=== PATIENT | female | born 1980 | race African-American/Black ===

== ENCOUNTER 2016-12-07 23:14 | Observation (INO) | payer OTHER ==
[~2016-12-07] VITALS: Ht 157.5 cm; Wt 105.0 kg
[~2016-12-07 23:14] MED LIST: ALBU.5I NEB; AMLO5 PO; CLON0.2T PO; HYDR25TA5 PO; LISI40TA PO; PRED20 PO; SYMB160A INH; ZITHTAB PO
[2016-12-07 23:18] VITALS: BP 124/96; PULSE 88; RESP 16; TEMP 98.1; O2SAT 100
[2016-12-08] VITALS (7 sets, daily range): BP systolic 131–156; BP diastolic 74–91; PULSE 76–91; RESP 14–20; TEMP 97.5–98.4; O2SAT 100
[2016-12-08 00:10] LABS: AUTOMATED NEUTROPHIL # 3.9 TH/MM3 (1.8-7.7); BASOPHIL # 0.1 TH/MM3 (0-0.2); BASOPHIL % 0.8 % (0.0-2.0); EOSINOPHIL # 0.3 TH/MM3 (0-0.4); EOSINOPHIL % 4.9 % (0.0-4.0); HEMATOCRIT 36.9 % (35.0-46.0); HEMO FLAGS DIFF FINAL; LYMPH % 34.8 % (9.0-44.0); LYMPHOCYTE # 2.5 TH/MM3 (1.0-4.8); MEAN CELL VOLUME 76.4 FL (80.0-100.0); MEAN CORPUSCULAR HEMOGLOBIN 25.3 PG (27.0-34.0); MEAN CORPUSCULAR HGB CONC 33.1 % (32.0-36.0); MONO % 5.4 % (0.0-8.0); NEUT % 54.1 % (16.0-70.0); PLATELET COUNT 249 TH/MM3 (150-450); RED BLOOD COUNT 4.82 MIL/MM3 (4.00-5.30); RED CELL DISTRIBUTION WIDTH 17.9 % (11.6-17.2); WHITE BLOOD COUNT 7.2 TH/MM3 (4.0-11.0)
--- NOTE | 2016-12-08 00:22 | RADRPT ---
EXAM DATE/TIME: 12/07/2016 23:42 [place] COMPARISON: CHEST SINGLE AP, September 16, 2016, 16:43. INDICATIONS : Chest pain. MEDICAL HISTORY : None. SURGICAL HISTORY : None. ENCOUNTER: Initial ACUITY: 1 day PAIN SCORE: 5/10 LOCATION: Bilateral chest FINDINGS: A single view of the chest demonstrates the lungs to be symmetrically aerated without evidence of mas s, infiltrate or effusion. The cardiomediastinal contours are unremarkable. Osseous structures are intact. CONCLUSION: No acute disease. No significant change has occurred. Dc Dill MD on December 08, 2016 at 0:20 Board Certified Radiologist. This report was verified electronically.
[2016-12-08 00:27] LABS: INTERNATIONAL NORMALIZED RATIO 0.9 RATIO
[2016-12-08 00:33] LABS: ANION GAP 8 MEQ/L (5-15); BICARBONATE 25.4 MEQ/L (21.0-32.0); BLOOD UREA NITROGEN 10 MG/DL (7-18); CHLORIDE 108 MEQ/L (98-107); GLOMERULAR FILTRATION RATE 110 ML/MIN (>89); POTASSIUM 3.9 MEQ/L (3.5-5.1); SODIUM (NA) 141 MEQ/L (136-145)
[2016-12-08 00:36] LABS: CREATINE KINASE 140 U/L (26-192)
[2016-12-08 00:49] LABS: CKMB 0.9 NG/ML (0.5-3.6)
[2016-12-08] MEDS ORDERED: ONDANSETRON HCL 4 MG/2 ML VIAL IV PRN (02:30)
[2016-12-08] MEDS ORDERED: SODIUM CHLORIDE 0.9% FLUSH 5 ML FLUSH IVF PRN (02:30)
[2016-12-08] MEDS ORDERED: ACETAMINOPHEN 500 MG CPLT PO PRN (02:30)
[2016-12-08] MEDS ORDERED: ASPIRIN 81 MG CHEW TAB CHEW ONE (02:30)
[2016-12-08] MEDS ORDERED: RESP: ALBUTEROL 2.5 MG/3 ML NEB (SCH) NEB ONE (02:30)
[2016-12-08] MEDS ORDERED: NITROGLYCERIN 0.4 MG SL 25 TABS/BTL SL PRN (02:30)
--- NOTE | 2016-12-08 02:33 | PD ---
HPI Chief Complaint: Chest Pain Time Seen by Provider: 02:21 Travel History International Travel<30 days: No Contact w/Intl Traveler<30days: No Traveled to known affect area: No History of Present Illness HPI 36-year-old female came to the emergency room with history of chest pain for past 2-3 days. She describes the pain as a pressure sensation on the left side of her chest going down to her left arm and the left side of her jaw. Patient says she usually has some sort of chest pain on a chronic basis but this time the pain was more severe. She has come to the emergency room multiple times in the past for the chest pain. She has never had a stress test. Patient has history of hypertension. She is not a smoker and her grandmother of a heart attack. Vital signs were stable in triage. There is no aggravating or relieving factors identified. [facility] Past Medical History Narrative Medical List of her past medical, surgical, social and family history was reviewed from the nursing note. Arthritis: No Asthma: Yes Autoimmune Disease: No Blood Disorders: No Anxiety: No Depression: No Heart Rhythm Problems: No Cancer: No Cardiovascular Problems: Yes (htn) High Cholesterol: No Chemotherapy: No Chest Pain: Yes Congestive Heart Failure: No COPD: No Cerebrovascular Accident: No Diabetes: No Diminished Hearing: No Endocrine: No Gastrointestinal Disorders: No GERD: No Genitourinary: No Headaches: Yes Hiatal Hernia: No Hypertension: Yes Immune Disorder: No Implanted Vascular Access Dvce: No Kidney Stones: No Musculoskeletal: No Neurologic: No Psychiatric: No Reproductive: No Respiratory: Yes (ASTHMA) Immunizations Current: Yes Migraines: Yes Radiation Therapy: No Renal Failure: No Seizures: Yes Sickle Cell Disease: No Sleep Apnea: No Thyroid Disease: No Ulcer: No PNEUMOCCOCAL Vaccine (Year): 1 : 6 Para: 6 Miscarriage: 0 : 0 Tubal Ligation: Yes Past Surgical History Abdominal Surgery: No AICD: No Arteriovenous Shunt: No Cardiac Surgery: No Ear Surgery: No Endocrine Surgery: No Eye Surgery: No Genitourinary Surgery: No Gynecologic Surgery: Yes (tubal ligation) Insulin Pump: No Joint Replacement: No Neurologic Surgery: No Oral Surgery: No Pacemaker: No Thoracic Surgery: No Other Surgery: Yes Social History Alcohol Use: Yes (occassionally ) Tobacco Use: No (QUIT 2010) Substance Use: No Allergies-Medications (Allergen,Severity, Reaction): Coded Allergies: Canned Fish (Verified Allergy, Severe, ANAPHYLAXIS, 12/07/16) "all fish" per pt Penicillin (Verified Allergy, Severe, Rash, 12/07/16) Seafood (Verified Allergy, Severe, ANAPHYLAXIS, 12/07/16) Rocephin (Verified Allergy, Intermediate, VOMITING, 12/07/16) Comments List of her allergies reviewed from the nursing note. Reported Meds & Prescriptions Reported Meds & Active Scripts Active Albuterol Neb (Albuterol Sulfate) 2.5 Mg/0.5 Ml Neb 2.5 Mg NEB Q6HR NEB PRN Note: The Albuterol Sulfate Inhalation Solution is concentrated and must be diluted. Read complete instructions carefully before using. Prednisone 20 Mg Tab 40 Mg PO DAILY 4 Days Reported Ipratropium Neb (Ipratropium [place]) 0.5 Mg/2.5 Ml Amp 0.5 Mg NEB Q6HR NEB Ventolin Hfa 18 GM Inh (Albuterol Sulfate) 90 Mcg/Act Aer 2 Puff INH Q4H PRN Advair Diskus Inh (Fluticasone-Salmeterol Inh) 100-50 Mcg/Blist Aer 1 Puff INH BID Rinse mouth after use. Dilantin (Phenytoin Extended) 100 Mg Cap 300 Mg PO HS Norvasc (Amlodipine Besylate) 5 Mg Tab 5 Mg PO HS Clonidine (Clonidine HCl) 0.2 Mg Tab 0.2 Mg PO HS Symbicort Inh (Budesonide/Formoterol Fumarate) 160-4.5 Mcg/Act Aero 2 Puff INH Q12HR Hydrochlorothiazide 25 Mg Tab 25 Mg PO BID Lisinopril 40 Mg Tab 40 Mg PO HS Narrative Medication List of her home medications reviewed from the nursing note. Review of Systems Except as stated in HPI: all other systems reviewed are Neg Physical Exam Narrative GENERAL: Awake, alert, morbidly obese, mild distress SKIN: Warm and dry. HEAD: Atraumatic. Normocephalic. EYES: Pupils equal and round. No scleral icterus. No injection or drainage. ENT: No nasal bleeding or discharge. Mucous membranes pink and moist. NECK: Trachea midline. No JVD. CARDIOVASCULAR: Regular rate and rhythm. No murmur appreciated. RESPIRATORY: No accessory muscle use. End expiratory wheeze GASTROINTESTINAL: Abdomen soft, non-tender, nondistended. Hepatic and splenic margins not palpable. MUSCULOSKELETAL: No obvious deformities. No clubbing. No cyanosis. No edema. NEUROLOGICAL: Awake and alert. No obvious cranial nerve deficits. Motor grossly within normal limits. Normal speech. PSYCHIATRIC: Appropriate mood and affect; insight and judgment normal. Data Data Last Documented VS Vital Signs Date Time Temp Pulse Resp B/P Pulse Ox O2 Delivery O2 Flow Rate FiO2 12/07/16 23:18 98.1 88 16 124/96 100 Room Air Orders Electrocardiogram (12/07/16 23:35) Complete Blood Count With Diff (12/07/16 23:35) Basic Metabolic Panel (Bmp) (12/07/16 23:35) Ckmb (Isoenzyme) Profile (12/07/16 23:35) Troponin I (12/07/16 23:35) Chest, Single Ap (12/07/16 23:35) Ed Urine Pregnancytest Poc (12/07/16 23:35) Coag Profile (12/07/16 23:35) CKMB (12/07/16 23:48) CKMB% (12/07/16 23:48) Albuterol Neb (Albuterol Neb) (12/08/16 02:30) Aspirin Chew (Aspirin Chew) (12/08/16 02:30) Admit Order (Ed Use Only) (12/08/16 02:27) Place In Observation (12/08/16 02:27) Activity Bed Rest With Brp (12/08/16 02:27) Vital Signs (Adult) Q4H (12/08/16 02:27) Cardiac Rhythm .As Directed (12/08/16 02:27) ^ Notify Dr: Other .PRN (12/08/16 02:27) ^ Notify Dr. Parameters (12/08/16 02:27) Resp Oxygen Nasal Cannula (12/08/16 ) Ckmb (Isoenzyme) Profile (12/08/16 02:27) Ckmb (Isoenzyme) Profile (12/08/16 05:27) Troponin I (12/08/16 02:27) Troponin I (12/08/16 05:27) Electrocardiogram (12/08/16 02:27) Electrocardiogram (12/08/16 05:27) ^ Obtain (12/08/16 02:27) Sodium Chloride 0.9% Flush (Ns Flush) (12/08/16 02:30) Sodium Chloride 0.9% Flush (Ns Flush) (12/08/16 09:00) Acetaminophen (Tylenol) (12/08/16 02:30) Ondansetron Inj (Zofran Inj) (12/08/16 02:30) Nitroglycerin Sl (Nitrostat Sl) (12/08/16 02:30) Core Drilling Supervisor / Telemetry ARTEMIO.Q8H (12/08/16 02:27) Labs Laboratory Tests Test 12/07/16 23:48 White Blood Count 7.2 TH/MM3 Red Blood Count 4.82 MIL/MM3 Hemoglobin 12.2 GM/DL Hematocrit 36.9 % Mean Corpuscular Volume 76.4 FL Mean Corpuscular Hemoglobin 25.3 PG Mean Corpuscular Hemoglobin 33.1 % Concent Red Cell Distribution Width 17.9 % Platelet Count 249 TH/MM3 Mean Platelet Volume 10.5 FL Neutrophils (%) (Auto) 54.1 % Lymphocytes (%) (Auto) 34.8 % Monocytes (%) (Auto) 5.4 % Eosinophils (%) (Auto) 4.9 % Basophils (%) (Auto) 0.8 % Neutrophils # (Auto) 3.9 TH/MM3 Lymphocytes # (Auto) 2.5 TH/MM3 Monocytes # (Auto) 0.4 TH/MM3 Eosinophils # (Auto) 0.3 TH/MM3 Basophils # (Auto) 0.1 TH/MM3 CBC Comment DIFF FINAL Differential Comment Prothrombin Time 10.0 SEC Prothromb Time International 0.9 RATIO Ratio Activated Partial 28.0 SEC Thromboplast Time Sodium Level 141 MEQ/L Potassium Level 3.9 MEQ/L Chloride Level 108 MEQ/L Carbon Dioxide Level 25.4 MEQ/L Anion Gap 8 MEQ/L Blood Urea Nitrogen 10 MG/DL Creatinine 0.72 MG/DL Estimat Glomerular Filtration 110 ML/MIN Rate Random Glucose 111 MG/DL Calcium Level 8.9 MG/DL Total Creatine Kinase 140 U/L Creatine Kinase MB 0.9 NG/ML Troponin I LESS THAN 0.02 NG/ML Phenytoin (Dilantin) Level LESS THAN 0.4 MCG/ML MDM Medical Decision Making Medical Screen Exam Complete: Yes Emergency Medical Condition: Yes Medical Record Reviewed: Yes Interpretation(s) Twelve-lead EKG was reviewed by me. Normal sinus rhythm, normal axis, nonspecific ST-T wave changes. Heart rate of 77 bpm. Differential Diagnosis Chest pain, ACS, non-STEMI, reactive airway disease Narrative Course 2:32 AM blood test results of back and troponin is negative. Given her risk factors of obesity, hypertension, family history I would like her to be admitted to the chest pain center to be ruled out ACS. Procedures EKG Prior to Arrival: Yes Diagnosis Primary Impression: Chest pain Qualified Code: R07.9 - Chest pain, unspecified type Admitting Information Admitting Physician Requests: Mary Strauss MD Dec 08, 2016 02:33
[2016-12-08 03:26] LABS: CREATINE KINASE 147 U/L (26-192)
[2016-12-08 03:39] LABS: CKMB 0.6 NG/ML (0.5-3.6)
[2016-12-08 07:12] LABS: CREATINE KINASE 109 U/L (26-192)
[2016-12-08 07:24] LABS: CKMB LESS THAN 0.5 NG/ML (0.5-3.6)
[2016-12-08] MEDS ORDERED: HYDROCHLOROTHIAZIDE 25 MG TAB PO SCH (09:00)
[2016-12-08] MEDS ORDERED: RESP: ALBUTEROL 2.5 MG/IPRATROPIUM 0.5 MG NEB (PRN) INH (09:00)
[2016-12-08] MEDS ORDERED: predniSONE 20 MG TAB PO SCH (09:00)
[2016-12-08] MEDS ORDERED: SODIUM CHLORIDE 0.9% FLUSH 5 ML FLUSH IVF SCH (09:00)
[2016-12-08] MEDS ORDERED: RESP: ALBUTEROL 2.5 MG/IPRATROPIUM 0.5 MG NEB (SCH) INH ONE (09:00)
[2016-12-08] MEDS ORDERED: BUDESONIDE-FORMOTEROL 160/4.5 MCG INHALER INH SCH (09:00)
[2016-12-08] MEDS ORDERED: DILA100C PO (10:05)
[2016-12-08] MEDS ORDERED: ADVA100A INH (10:07)
[2016-12-08] MEDS ORDERED: VENTAER INH (10:08)
[2016-12-08] MEDS ORDERED: IPRA0.02 NEB (10:10)
--- NOTE | 2016-12-08 11:03 | HHI.HP ---
[facility] Primary Care Physician Salomon Morocho MD Chief Complaint Chest pain History of Present Illness This is a 36-year-old female that presents to the ED via private vehicle with her girlfriend with a complaint of constant chest discomfort that has been there for 3 years. It is always there. She became concerned over the last 2-3 days when the discomfort was more intense than usual. She has found it is worsened with certain movements. She's had no associated shortness of breath with her symptoms but states she has of chronic shortness of breath with her asthma. No nausea or diaphoresis. She is on steroids recently prescribed by her principal cyber engineer. She states she is on O2 at home at night. Denies . Denies fevers or chills. Review of Systems General: Patient denies fevers, chills recent, and recent travel HEENT: Patient denies headache, sore throat, difficulty swallowing. Cardiovascular: Has the chest discomfort as mentioned above. Denies sensation of heart beating rapidly or irregularly. No syncope. Denies diaphoresis. Respiratory: Chronically short of breath. Chronic wheezing. This is not worsened. Denies hemoptysis. Denies inspirational chest discomfort. GI: Patient denies nausea, vomiting, diarrhea, abdominal pain, bloody stools. Musculoskeletal: Patient denies joint pain or edema. Denies calf pain or edema. Neurovascular: Patient denies numbness, tingling, weakness in extremities. Denies headache. Endocrine: Denies polyuria and polydipsia. Hematologic: Denies easy bruising. Skin: Denies rash or itching. Past Family Social History Allergies: Coded Allergies: Canned Fish (Verified Allergy, Severe, ANAPHYLAXIS, 12/07/16) "all fish" per pt Penicillin (Verified Allergy, Severe, Rash, 12/07/16) Seafood (Verified Allergy, Severe, ANAPHYLAXIS, 12/07/16) Rocephin (Verified Allergy, Intermediate, VOMITING, 12/07/16) Past Medical History Hypertension, asthma, and seizure disorder. Last seizure was 3 or 4 months ago. Past Surgical History Tubal ligation. Reported Medications Reported Meds & Active Scripts Active Albuterol Neb (Albuterol Sulfate) 2.5 Mg/0.5 Ml Neb 2.5 Mg NEB Q6HR NEB PRN Note: The Albuterol Sulfate Inhalation Solution is concentrated and must be diluted. Read complete instructions carefully before using. Prednisone 20 Mg Tab 40 Mg PO DAILY 4 Days Reported Ipratropium Neb (Ipratropium [place]) 0.5 Mg/2.5 Ml Amp 0.5 Mg NEB Q6HR NEB Ventolin Hfa 18 GM Inh (Albuterol Sulfate) 90 Mcg/Act Aer 2 Puff INH Q4H PRN Advair Diskus Inh (Fluticasone-Salmeterol Inh) 100-50 Mcg/Blist Aer 1 Puff INH BID Rinse mouth after use. Dilantin (Phenytoin Extended) 100 Mg Cap 300 Mg PO HS Norvasc (Amlodipine Besylate) 5 Mg Tab 5 Mg PO HS Clonidine (Clonidine HCl) 0.2 Mg Tab 0.2 Mg PO HS Symbicort Inh (Budesonide/Formoterol Fumarate) 160-4.5 Mcg/Act Aero 2 Puff INH Q12HR Hydrochlorothiazide 25 Mg Tab 25 Mg PO BID Lisinopril 40 Mg Tab 40 Mg PO HS Active Ordered Medications Current Medications Medications (Trade) Dose Ordered Sig/Kitty Route Start Time Stop Time Status Last Admin (NS Flush) 2 ml UNSCH PRN IVF 12/08/16 02:30 (NS Flush) 2 ml BID IVF 12/08/16 09:00 12/08/16 09:44 (Tylenol) 500 mg Q4H PRN PO 12/08/16 02:30 (Zofran Inj) 4 mg Q6H PRN IV 12/08/16 02:30 (Nitrostat Sl) 0.4 mg Q5M PRN SL 12/08/16 02:30 (Norvasc) 5 mg HS PO 12/08/16 21:00 (Symbicort 160-4.5 Inh) 2 puff Q12HR INH 12/08/16 09:00 12/08/16 10:12 (Catapres) 0.2 mg HS PO 12/08/16 21:00 (Hydrodiuril) 25 mg BID PO 12/08/16 09:00 12/08/16 09:44 (Deltasone) 40 mg DAILY PO 12/08/16 09:00 12/08/16 09:44 (Prinivil) 40 mg HS PO 12/08/16 21:00 (Dilantin) 300 mg DAILY PO 12/09/16 09:00 Family History Denies family history of CAD. Social History Patient is a nonsmoker. Rarely has alcohol. Denies illicit drugs. Physical Exam Vital Signs Vital Signs Date Time Temp Pulse Resp B/P Pulse Ox O2 Delivery O2 Flow Rate FiO2 12/08/16 07:47 97.5 77 18 141/79 12/08/16 07:20 100 21 12/08/16 05:58 76 12/08/16 05:58 76 12/08/16 05:15 98.3 83 20 153/91 100 12/08/16 04:35 83 14 131/74 100 Room Air 12/07/16 23:18 98.1 88 16 124/96 100 Room Air Physical Exam GENERAL: This is a well-nourished, well-developed patient, in no apparent distress. Patient speaks in clear complete sentences. Patient is pleasant. HEENT: Head is atraumatic and normocephalic. Neck is supple without lymphadenopathy and trachea is midline. No JVD or carotid bruits. CARDIOVASCULAR: Regular rate and rhythm without murmurs, gallops, or rubs. RESPIRATORY: Chest wall is tender when palpating also when pressing with a stethoscope. The discomfort is also worsened with twisting the torso. There were scattered wheezing throughout the lungs. No rales, or rhonchi. No use of accessory muscles. GASTROINTESTINAL: Abdomen is nontender, nondistended. Abdomen soft. No obvious pulsatile mass or bruit. No CVA tenderness. Strong femoral pulses bilaterally. Normal bowel sounds in all quadrants. MUSCULOSKELETAL: Patient is moving upper and lower extremities freely. No calf tenderness or edema, no Homans sign. Strong pulses in upper and lower extremities. NEUROLOGICAL: Patient is alert and oriented. Cranial nerves 2-12 are grossly intact. No focal deficits and speech is clear. SKIN: No rash and turgor is normal. Laboratory Laboratory Tests Test 12/07/16 12/08/16 12/08/16 23:48 02:55 06:30 White Blood Count 7.2 Red Blood Count 4.82 Hemoglobin 12.2 Hematocrit 36.9 Mean Corpuscular Volume 76.4 Mean Corpuscular Hemoglobin 25.3 Mean Corpuscular Hemoglobin 33.1 Concent Red Cell Distribution Width 17.9 Platelet Count 249 Mean Platelet Volume 10.5 Neutrophils (%) (Auto) 54.1 Lymphocytes (%) (Auto) 34.8 Monocytes (%) (Auto) 5.4 Eosinophils (%) (Auto) 4.9 Basophils (%) (Auto) 0.8 Neutrophils # (Auto) 3.9 Lymphocytes # (Auto) 2.5 Monocytes # (Auto) 0.4 Eosinophils # (Auto) 0.3 Basophils # (Auto) 0.1 CBC Comment DIFF FINAL Differential Comment Prothrombin Time 10.0 Prothromb Time International 0.9 Ratio Activated Partial 28.0 Thromboplast Time Sodium Level 141 Potassium Level 3.9 Chloride Level 108 Carbon Dioxide Level 25.4 Anion Gap 8 Blood Urea Nitrogen 10 Creatinine 0.72 Estimat Glomerular Filtration 110 Rate Random Glucose 111 Calcium Level 8.9 Total Creatine Kinase 140 147 109 Creatine Kinase MB 0.9 0.6 LESS THAN 0.5 Troponin I LESS THAN 0.02 LESS THAN 0.02 LESS THAN 0.02 Phenytoin (Dilantin) Level LESS THAN 0.4 Result Diagram: 12/07/16 2348 12/07/16 2348 Imaging Last 48 hours Impressions Chest X-Ray 12/07/16 2335 Signed Impressions: Service Date/Time: Wednesday, December 07, 2016 23:42 - CONCLUSION: No acute disease. No significant change has occurred. Dc Dill MD Course EKGs have sinus rhythm with nonspecific T-wave changes. Assessment and Plan Assessment and Plan * Atypical chest pain: Patient had serial cardiac enzymes and EKGs for ruling out purposes. She will be evaluated by Dr. Lara cardiology and the chest pain center. The be no stress testing at this time. She should follow-up with her primary care physician for atypical discomfort. * Asthma: Continue current medications. * Seizure disorder: Patient is a take her medication. Her Dilantin level was less than 0.4 however she states she has not taken her medication for the last week. She has this at home to take. Patient is stable this time. She is agreeable to this plan. Sanju Nichole Dec 08, 2016 11:03
--- NOTE | 2016-12-08 12:28 | EKG ---
Date Performed: 12/08/2016 Time Performed: 05:40:56 PTAGE: 36 years EKG: Sinus rhythm WITH OCCASIONAL SUPRAVENTRICULAR PREMATURE COMPLEXES NONSPECIFIC T-WAVE ABNORMALITY BORDERLINE ECG N o significant change from prior electrocardiogram. PREVIOUS TRACING : 12/08/2016 03.04 DOCTOR: Aristides Martinez Interpretating Date/Time 12/08/2016 12:27:48
--- NOTE | 2016-12-08 12:29 | EKG ---
Date Performed: 12/08/2016 Time Performed: 03:03:27 PTAGE: 36 years EKG: Sinus rhythm NONSPECIFIC ST & T-WAVE ABNORMALITY BORDERLINE ECG No significant change from prior electrocardiogra m. PREVIOUS TRACING : 12/07/2016 23.40 DOCTOR: Aristides Martinez Interpretating Date/Time 12/08/2016 12:28:51
--- NOTE | 2016-12-08 12:32 | EKG ---
Date Performed: 12/07/2016 Time Performed: 23:40:24 PTAGE: 36 years EKG: Sinus rhythm NONSPECIFIC T-WAVE ABNORMALITY BORDERLINE ECG No significant change from prior electrocardiogram. PREVIOUS TRACING : 09/16/2016 16.48 DOCTOR: Aristides Martinez Interpretating Date/Time 12/08/2016 12:32:04
--- NOTE | 2016-12-08 12:35 | HHI.DCPOC ---
Discharge Care Plan Diagnosis: (1) Chest pain, atypical (2) Hypertension (3) Asthma (4) Obesity Goals to Promote Your Health * To prevent worsening of your condition and complications * To maintain your health at the optimal level Directions to Meet Your Goals Take your medications as prescribed Follow your dietary instruction Follow activity as directed Keep your appointments as scheduled Take your immunizations and boosters as scheduled If your symptoms worsen call your PCP, if no PCP go to Urgent Care Center or Emergency Room Smoking is Dangerous to Your Health. Avoid second hand smoke Call the 24-hour hour crisis hotline for domestic abuse at Sanju Nichole Dec 08, 2016 12:35
[2016-12-08] MEDS ORDERED: amLODIPine BESYLATE 5 MG TAB PO SCH (21:00)
[2016-12-08] MEDS ORDERED: LISINOPRIL 20 MG TAB PO SCH (21:00)
[2016-12-08] MEDS ORDERED: cloNIDine HCL 0.2 MG TAB PO SCH (21:00)
[2016-12-09] MEDS ORDERED: PHENYTOIN SODIUM 100 MG CAP PO SCH (09:00)
== END 2016-12-08 13:09 | disposition home or self-care (01) ==
LOC: NEPC 23:14 → NEDA 12-08 02:29 → NEPHCDU 12-08 05:02
DX: R07.89 Other chest pain (principal); I10 Essential (primary) hypertension; R94.31 Abnormal electrocardiogram [ECG] [EKG]; J45.909 Unspecified asthma, uncomplicated; G40.909 Epilepsy, unspecified, not intractable, without status epilepticus; E66.9 Obesity, unspecified; Z68.41 Body mass index [BMI] 40.0-44.9, adult; Z99.81 Dependence on supplemental oxygen; Z79.899 Other long term (current) drug therapy
CPT/HCPCS: 71010; 80048; 80185; 82550; 82552; 84484; 84703; 85025; 85610; 85730; 93005; 94640; 94664; 99285; G0378; J7512; J7613

== ENCOUNTER 2017-03-12 19:09 | Emergency (ER) | payer OTHER ==
[~2017-03-12] VITALS: Ht 157.5 cm; Wt 100.0 kg
[~2017-03-12 19:09] MED LIST changes: +ADVA100A INH; +DILA100C PO; +IPRA0.02 NEB; +VENTAER INH; -ZITHTAB PO
[2017-03-12 19:12] VITALS: BP 177/114; PULSE 96; RESP 16; TEMP 101; O2SAT 98
--- NOTE | 2017-03-12 19:39 | PD ---
HPI Chief Complaint: Respiratory Symptoms Time Seen by Provider: 19:31 Travel History International Travel<30 days: No Contact w/Intl Traveler<30days: No Traveled to known affect area: No History of Present Illness HPI 36-year-old female came to the emergency room with history of shortness of breath. Patient has history of asthma. Says this started a few hours ago. She did take her asthma inhaler but still feels short of breath. She was on the stretcher with her partner laying together. Mostly sleeping and did not appear to be in any respiratory distress. Patient had a temperature 101 in triage. Patient has been hospitalized in the past for asthma but not in the intensive care unit. [facility] Past Medical History Narrative Medical List of her past medical, surgical, social and family history was reviewed from the nursing note. Arthritis: No Asthma: Yes Autoimmune Disease: No Blood Disorders: No Anxiety: No Depression: No Heart Rhythm Problems: No Cancer: No Cardiovascular Problems: Yes (htn) High Cholesterol: No Chemotherapy: No Chest Pain: Yes Congestive Heart Failure: No COPD: No Cerebrovascular Accident: No Diabetes: No Diminished Hearing: No Endocrine: No Gastrointestinal Disorders: No GERD: No Genitourinary: No Headaches: Yes Hiatal Hernia: No Hypertension: Yes Immune Disorder: No Implanted Vascular Access Dvce: No Kidney Stones: No Musculoskeletal: No Neurologic: No Psychiatric: No Reproductive: No Respiratory: Yes (ASTHMA) Immunizations Current: Yes Migraines: Yes Radiation Therapy: No Renal Failure: No Seizures: Yes Sickle Cell Disease: No Sleep Apnea: No Thyroid Disease: No Ulcer: No PNEUMOCCOCAL Vaccine (Year): 1 : 6 Para: 6 Miscarriage: 0 : 0 Tubal Ligation: Yes Past Surgical History Abdominal Surgery: No AICD: No Arteriovenous Shunt: No Cardiac Surgery: No Ear Surgery: No Endocrine Surgery: No Eye Surgery: No Genitourinary Surgery: No Gynecologic Surgery: Yes (tubal ligation) Insulin Pump: No Joint Replacement: No Neurologic Surgery: No Oral Surgery: No Pacemaker: No Thoracic Surgery: No Other Surgery: Yes Social History Alcohol Use: Yes (occassionally ) Tobacco Use: No (QUIT 2010) Substance Use: No Allergies-Medications (Allergen,Severity, Reaction): Coded Allergies: Canned Fish (Verified Allergy, Severe, ANAPHYLAXIS, 03/12/17) "all fish" per pt Penicillin (Verified Allergy, Severe, Rash, 03/12/17) Seafood (Verified Allergy, Severe, ANAPHYLAXIS, 03/12/17) Rocephin (Verified Allergy, Intermediate, VOMITING, 03/12/17) Comments List of her allergies reviewed from the nursing note. Reported Meds & Prescriptions Reported Meds & Active Scripts Active Levaquin (Levofloxacin) 500 Mg Tablet 1 Tab PO DAILY Prednisone 20 Mg Tab 20 Mg PO BID 5 Days Ventolin Hfa 18 GM Inh (Albuterol Sulfate) 90 Mcg/Act Aer 2 Puff INH Q4H PRN Albuterol Neb (Albuterol Sulfate) 2.5 Mg/0.5 Ml Neb 2.5 Mg NEB Q6HR NEB PRN Note: The Albuterol Sulfate Inhalation Solution is concentrated and must be diluted. Read complete instructions carefully before using. Reported Ipratropium Neb (Ipratropium [place]) 0.5 Mg/2.5 Ml Amp 0.5 Mg NEB Q6HR NEB Advair Diskus Inh (Fluticasone-Salmeterol Inh) 100-50 Mcg/Blist Aer 1 Puff INH BID Rinse mouth after use. Dilantin (Phenytoin Extended) 100 Mg Cap 300 Mg PO HS Norvasc (Amlodipine Besylate) 5 Mg Tab 5 Mg PO HS Clonidine (Clonidine HCl) 0.2 Mg Tab 0.2 Mg PO HS Symbicort Inh (Budesonide/Formoterol Fumarate) 160-4.5 Mcg/Act Aero 2 Puff INH Q12HR Hydrochlorothiazide 25 Mg Tab 25 Mg PO BID Lisinopril 40 Mg Tab 40 Mg PO HS Narrative Medication List of her home medications reviewed from the nursing note. Review of Systems Except as stated in HPI: all other systems reviewed are Neg Physical Exam Narrative GENERAL: Awake, alert, morbidly obese, no obvious distress SKIN: Focused skin assessment warm/dry. HEAD: Atraumatic. Normocephalic. EYES: Pupils equal and round. No scleral icterus. No injection or drainage. ENT: No nasal bleeding or discharge. Mucous membranes pink and moist. NECK: Trachea midline. No JVD. CARDIOVASCULAR: Regular rate and rhythm. No murmur appreciated. RESPIRATORY: No accessory muscle use. Decreased air entry bilaterally with end expiratory wheeze GASTROINTESTINAL: Abdomen soft, non-tender, nondistended. Hepatic and splenic margins not palpable. MUSCULOSKELETAL: No obvious deformities. No clubbing. No cyanosis. No edema. NEUROLOGICAL: Awake and alert. No obvious cranial nerve deficits. Motor grossly within normal limits. Normal speech. PSYCHIATRIC: Appropriate mood and affect; insight and judgment normal. Data Data Last Documented VS Orders Ecg Monitoring (03/12/17 19:46) Iv Access Insert/Monitor (03/12/17 19:46) Oximetry (03/12/17 19:46) Oxygen Administration (03/12/17 19:46) Methylprednisolone So Succ Inj (Solumedr (03/12/17 20:00) Albuterol-Ipratropium Neb (Duoneb Neb) (03/12/17 20:00) Sodium Chloride 0.9% Flush (Ns Flush) (03/12/17 20:00) Prednisone (Deltasone) (03/12/17 20:45) Chest, Pa & Lat (03/12/17 ) Urinalysis - C+S If Indicated (03/12/17 20:45) Acetaminophen (Tylenol) (03/12/17 20:45) Complete Blood Count With Diff (03/12/17 22:23) Basic Metabolic Panel (Bmp) (03/12/17 22:23) Lactic Acid (03/12/17 22:23) Levofloxacin 500 Mg Premix Inj (Levaquin (03/12/17 22:30) Blood Culture (03/12/17 22:23) Ketorolac Inj (Toradol Inj) (03/12/17 22:30) Labs MDM Medical Decision Making Medical Screen Exam Complete: Yes Emergency Medical Condition: Yes Medical Record Reviewed: Yes Differential Diagnosis Pneumonia, viral illness, asthma exacerbation Narrative Course 8:45 PM patient was given 3 duo nebs with prednisone. I've ordered a chest x- ray. I will reassess her in a bit. 10:32 PM chest x-ray was suggestive of bilateral lower lobe opacity which under the circumstances I will consider pneumonia. I have ordered blood work along with lactic acid and blood culture and ordered IV Levaquin. Patient was complaining of headache and I have ordered some Toradol. I also went back and reassessed her. There entry has improved. Patient does not have any signs of meningismus and the neck is supple. She does complain of headache upon bending her neck forward. There is a possibility of sinusitis. 11:27 PM all the test results of back. CBC has some left shift but chemistry and lactic acid within normal limit. UA is within normal limit. I'll discharge her home on Levaquin. Procedures EKG Prior to Arrival: No Diagnosis Primary Impression: Acute asthma exacerbation Qualified Code: J45.41 - Moderate persistent asthma with acute exacerbation Additional Impression: Pneumonia Qualified Code: J18.9 - Pneumonia of both lower lobes due to infectious organism Referrals: Primary Care Physician Additional Instructions: Take the medication as per the prescription direction. Use your asthma inhaler 2 puffs every 4-6 hours. Return to the ER if the condition worsens or any other new concerns. Take Tylenol/Motrin/ibuprofen/Advil for pain and/or headache. Follow-up with your primary care in couple days. Med/Other Pt SpecificInfo: Prescription(s) given Scripts Levofloxacin (Levaquin)500 Mg Tablet1 Tab PO DAILY #10 Prov:Mary Rivera MD 03/12/17 Prednisone 20 Mg Tab20 Mg PO BID 5 Days Ref 0 Prov:Mary Rivera MD 03/12/17 Albuterol 18 GM Inh (Ventolin Hfa 18 GM Inh)90 Mcg/Act Aer2 Puff INH Q4H PRN ( SHORTNESS OF BREATH) #1 INHALER Ref 0 Prov:Mary Rivera MD 03/12/17 Disposition: 01 DISCHARGE HOME Condition: Stable Mary Rivera MD Mar 12, 2017 19:39 INDICATED White Blood Count 8.7 TH/MM3 Red Blood Count 4.51 MIL/MM3 Hemoglobin 11.2 GM/DL Hematocrit 34.7 % Mean Corpuscular Volume 76.8 FL Mean Corpuscular Hemoglobin 24.7 PG Mean Corpuscular Hemoglobin 32.2 % Concent Red Cell Distribution Width 17.4 % Platelet Count 225 TH/MM3 Mean Platelet Volume 9.9 FL Neutrophils (%) (Auto) 87.9 % Lymphocytes (%) (Auto) 7.2 % Monocytes (%) (Auto) 3.1 % Eosinophils (%) (Auto) 1.5 % Basophils (%) (Auto) 0.3 % Neutrophils # (Auto) 7.6 TH/MM3 Lymphocytes # (Auto) 0.6 TH/MM3 Monocytes # (Auto) 0.3 TH/MM3 Eosinophils # (Auto) 0.1 TH/MM3 Basophils # (Auto) 0.0 TH/MM3 CBC Comment DIFF FINAL Differential Comment Sodium Level 138 MEQ/L Potassium Level 3.6 MEQ/L Chloride Level 107 MEQ/L Carbon Dioxide Level 23.6 MEQ/L Anion Gap 7 MEQ/L Blood Urea Nitrogen 6 MG/DL Creatinine 0.68 MG/DL Estimat Glomerular Filtration 118 ML/MIN Rate Random Glucose 104 MG/DL Lactic Acid Level 0.7 mmol/L Calcium Level 8.9 MG/DL [facility] Medical Decision Making Medical Screen Exam Complete: Yes Emergency Medical Condition: Yes Medical Record Reviewed: Yes Differential Diagnosis Pneumonia, viral illness, asthma exacerbation Narrative Course 8:45 PM patient was given 3 duo nebs with prednisone. I've ordered a chest x- ray. I will reassess her in a bit. 10:32 PM chest x-ray was suggestive of bilateral lower lobe opacity which under the circumstances I will consider pneumonia. I have ordered blood work along with lactic acid and blood culture and ordered IV Levaquin. Patient was complaining of headache and I have ordered some Toradol. I also went back and reassessed her. There entry has improved. Patient does not have any signs of meningismus and the neck is supple. She does complain of headache upon bending her neck forward. There is a possibility of sinusitis. 11:27 PM all the test results of back. CBC has some left shift but chemistry and lactic acid within normal limit. UA is within normal limit. I'll discharge her home on Levaquin. Procedures EKG Prior to Arrival: No Diagnosis Primary Impression: Acute asthma exacerbation Qualified Code: J45.41 - Moderate persistent asthma with acute exacerbation Additional Impression: Pneumonia Qualified Code: J18.9 - Pneumonia of both lower lobes due to infectious organism Referrals: Primary Care Physician Additional Instructions: Take the medication as per the prescription direction. Use your asthma inhaler 2 puffs every 4-6 hours. Return to the ER if the condition worsens or any other new concerns. Take Tylenol/Motrin/ibuprofen/Advil for pain and/or headache. Follow-up with your primary care in couple days. Med/Other Pt SpecificInfo: Prescription(s) given Scripts Levofloxacin (Levaquin)500 Mg Tablet1 Tab PO DAILY #10 Prov:Mary Rivera MD 03/12/17 Prednisone 20 Mg Tab20 Mg PO BID 5 Days Ref 0 Prov:Mary Rivera MD 03/12/17 Albuterol 18 GM Inh (Ventolin Hfa 18 GM Inh)90 Mcg/Act Aer2 Puff INH Q4H PRN ( SHORTNESS OF BREATH) #1 INHALER Ref 0 Prov:Mary Rivera MD 03/12/17 Disposition: 01 DISCHARGE HOME Condition: Stable Mary Rivera MD Mar 12, 2017 19:39
[2017-03-12] MEDS: RESP: ALBUTEROL 2.5 MG/IPRATROPIUM 0.5 MG NEB (SCH) INH (19:58)
[2017-03-12] MEDS ORDERED: methylPREDNISolone SOD SUCC 125 MG/2 ML VIAL IVP ONE (20:00)
[2017-03-12] MEDS ORDERED: SODIUM CHLORIDE 0.9% FLUSH 10 ML FLUSH IVF PRN (20:00)
[2017-03-12] MEDS ORDERED: predniSONE 20 MG TAB PO ONE (20:45)
[2017-03-12] MEDS ORDERED: ACETAMINOPHEN 325 MG TAB PO ONE (20:45)
[2017-03-12 20:58] VITALS: RESP 22; O2SAT 98
[2017-03-12 21:46] VITALS: TEMP 100.4
--- NOTE | 2017-03-12 21:55 | RADRPT ---
EXAM DATE/TIME: 03/12/2017 21:30 [facility] COMPARISON: CTA THORACIC ABDOMINAL AORTA W 3D RECON, October 07, 2015, 1:14. CHEST SINGLE AP, December 07, 2016, 23 :42. CHEST PA & LAT, February 12, 2016, 8:32. INDICATIONS : Fever, cough, and congestion for 3 days. MEDICAL HISTORY : None. SURGICAL HISTORY : None. ENCOUNTER: Initial ACUITY: 3 days PAIN SCORE: 3/10 LOCATION: Bilateral chest FINDINGS: Frontal and lateral views of the chest demonstrate a normal-sized cardiac silhouette. There are meche l lower lung zone interstitial opacities bilaterally. No effusion or pneumothorax is identified. Bone s demonstrate no acute finding. CONCLUSION: Abnormal bilateral lower lung zone interstitial opacities. Sp Bay MD on March 12, 2017 at 21:51 Board Certified Radiologist. This report was verified electronically.
[2017-03-12 22:30] LABS: BACTERIA, URINE RARE /hpf; BLOOD, URINE NEG (NEG); COMMENT (UR) CULT NOT INDICATED; CULTURE IF INDICATED CULT NOT INDICATED; GLUCOSE,URINE NEG (NEG); KETONE, URINE 10 mg/dL (NEG); MUCUS URINE FEW /lpf (OCC); NITRITE,URINE NEG (NEG); PH, URINE 6.5 (5.0-8.5); SQUAMOUS EPITHELIAL CELL URINE 1 /hpf (0-5); URINE COLOR YELLOW (YELLW/STRAW)
[2017-03-12] MEDS ORDERED: KETOROLAC TROMETHAMINE 30 MG/ML (IVP) VIAL IV PUSH ONE (22:30)
[2017-03-12] MEDS ORDERED: LEVOFLOXACIN 500 MG PREMIX INJ 100 ML IV ONE (22:30)
[2017-03-12 23:01] LABS: AUTOMATED NEUTROPHIL # 7.6 TH/MM3 (1.8-7.7); BASOPHIL % 0.3 % (0.0-2.0); EOSINOPHIL # 0.1 TH/MM3 (0-0.4); EOSINOPHIL % 1.5 % (0.0-4.0); HEMATOCRIT 34.7 % (35.0-46.0); HEMO FLAGS DIFF FINAL; LYMPH % 7.2 % (9.0-44.0); LYMPHOCYTE # 0.6 TH/MM3 (1.0-4.8); MEAN CELL VOLUME 76.8 FL (80.0-100.0); MEAN CORPUSCULAR HEMOGLOBIN 24.7 PG (27.0-34.0); MEAN CORPUSCULAR HGB CONC 32.2 % (32.0-36.0); MONO % 3.1 % (0.0-8.0); NEUT % 87.9 % (16.0-70.0); PLATELET COUNT 225 TH/MM3 (150-450); RED BLOOD COUNT 4.51 MIL/MM3 (4.00-5.30); RED CELL DISTRIBUTION WIDTH 17.4 % (11.6-17.2); WHITE BLOOD COUNT 8.7 TH/MM3 (4.0-11.0)
[2017-03-12 23:20] LABS: BICARBONATE 23.6 MEQ/L (21.0-32.0); POTASSIUM 3.6 MEQ/L (3.5-5.1)
[2017-03-12] MEDS ORDERED: VENTAER INH (23:30)
[2017-03-12] MEDS ORDERED: PRED20 PO (23:30)
[2017-03-12] MEDS ORDERED: LEVA500T20 PO (23:30)
[2017-03-13 00:09] VITALS: BP 174/96; PULSE 92; RESP 22; O2SAT 97
== END 2017-03-13 00:33 | disposition home or self-care (01) ==
LOC: NEPD 19:09
DX: J45.41 Moderate persistent asthma with (acute) exacerbation (principal); J18.9 Pneumonia, unspecified organism; R51 Headache; I10 Essential (primary) hypertension; R56.9 Unspecified convulsions; Z79.51 Long term (current) use of inhaled steroids; Z79.899 Other long term (current) drug therapy; Z72.0 Tobacco use; Z88.8 Allergy status to other drugs, medicaments and biological substances
CPT/HCPCS: 71020; 80048; 81001; 83605; 85025; 87040; 94640; 94664; 96365; 96375; 99285; J1885; J1956; J7512

== ENCOUNTER 2017-05-02 15:19 | Emergency (ER) | payer OTHER ==
[~2017-05-02] VITALS: Ht 154.9 cm; Wt 105.0 kg
[~2017-05-02 15:19] MED LIST changes: +LEVA500T20 PO
[2017-05-02 15:22] VITALS: BP 180/122; PULSE 83; RESP 16; TEMP 98.6; O2SAT 98
--- NOTE | 2017-05-02 15:26 | PD ---
Physical Exam Date Seen by Provider: May 02, 2017 Time Seen by Provider: 15:24 Narrative Pt is a 36 year old female presenting to the ED for evaluation of vomiting and headache for the last 2 days. Denies or visual changes. VSS, awaiting bed placement. Data Data Last Documented VS Vital Signs Date Time Temp Pulse Resp B/P Pulse Ox O2 Delivery O2 Flow Rate FiO2 05/02/17 15:22 98.6 83 16 180/122 98 MDM Supervised Visit with CAMILA: Roxanne Sierra May 02, 2017 15:26
[2017-05-02 16:46] LABS: AUTOMATED NEUTROPHIL # 3.5 TH/MM3 (1.8-7.7); BASOPHIL % 0.5 % (0.0-2.0); EOSINOPHIL # 0.1 TH/MM3 (0-0.4); EOSINOPHIL % 1.4 % (0.0-4.0); HEMATOCRIT 33.7 % (35.0-46.0); HEMO FLAGS DIFF FINAL; LYMPH % 29.3 % (9.0-44.0); LYMPHOCYTE # 1.6 TH/MM3 (1.0-4.8); MEAN CELL VOLUME 77.4 FL (80.0-100.0); MEAN CORPUSCULAR HEMOGLOBIN 24.8 PG (27.0-34.0); MEAN CORPUSCULAR HGB CONC 32.1 % (32.0-36.0); MONO % 4.7 % (0.0-8.0); NEUT % 64.1 % (16.0-70.0); PLATELET COUNT 293 TH/MM3 (150-450); RED BLOOD COUNT 4.36 MIL/MM3 (4.00-5.30); WHITE BLOOD COUNT 5.5 TH/MM3 (4.0-11.0)
[2017-05-02 16:54] LABS: BLOOD, URINE NEG (NEG); COMMENT (UR) CULT NOT INDICATED; CULTURE IF INDICATED CULT NOT INDICATED; GLUCOSE,URINE NEG (NEG); KETONE, URINE NEG (NEG); NITRITE,URINE NEG (NEG); SQUAMOUS EPITHELIAL CELL URINE 2 /hpf (0-5); URINE COLOR YELLOW (YELLW/STRAW)
[2017-05-02 17:16] LABS: ANION GAP 5 MEQ/L (5-15); AST (GOT) 22 U/L (15-37); BICARBONATE 24.7 MEQ/L (21.0-32.0); BLOOD UREA NITROGEN 12 MG/DL (7-18); CHLORIDE 105 MEQ/L (98-107); GLOMERULAR FILTRATION RATE 124 ML/MIN (>89); POTASSIUM 3.9 MEQ/L (3.5-5.1); SODIUM (NA) 135 MEQ/L (136-145)
[2017-05-02 17:18] LABS: ALT (GPT) 32 U/L (10-53)
[2017-05-02 17:19] LABS: ALKALINE PHOSPHATASE 114 U/L (45-117); TOTAL BILIRUBIN ADULT 0.3 MG/DL (0.2-1.0)
[2017-05-02] MEDS ORDERED: methylPREDNISolone SOD SUCC 125 MG/2 ML VIAL IVP ONE (17:45)
[2017-05-02] MEDS ORDERED: ONDANSETRON HCL 4 MG/2 ML VIAL IV PUSH ONE (17:45)
[2017-05-02] MEDS ORDERED: KETOROLAC TROMETHAMINE 30 MG/ML (IVP) VIAL IV PUSH ONE (17:45)
--- NOTE | 2017-05-02 17:45 | PD ---
HPI Chief Complaint: GI Complaint Time Seen by Provider: 17:26 Travel History International Travel<30 days: No Contact w/Intl Traveler<30days: No Traveled to known affect area: No History of Present Illness HPI 36yo F with PMH of asthma, migraine headache, seizure not compliant with dilantin here with multiple complaints. States she has periumbilical abdominal pain that is nonradiating for 3 days. Pain is constant and has been associated with nausea and NBNB vomiting for 2 days. She also started having frontal migraine like headache that feels like her normal headache 2 day ago. Denies any fever, neck pain, trauma, chest pain, focal weakness or numbness, dysuria, hematuria. Pt states she has asthma and is always sob. PFSH Past Medical History Arthritis: No Asthma: Yes Autoimmune Disease: No Blood Disorders: No Anxiety: No Depression: No Heart Rhythm Problems: No Cancer: No Cardiovascular Problems: Yes (htn) High Cholesterol: No Chemotherapy: No Chest Pain: Yes Congestive Heart Failure: No COPD: No Cerebrovascular Accident: No Diabetes: No Diminished Hearing: No Endocrine: No Gastrointestinal Disorders: No GERD: No Genitourinary: No Headaches: Yes Hiatal Hernia: No Hypertension: Yes Immune Disorder: No Implanted Vascular Access Dvce: No Kidney Stones: No Musculoskeletal: No Neurologic: No Psychiatric: No Reproductive: No Respiratory: Yes (ASTHMA) Immunizations Current: Yes Migraines: Yes Radiation Therapy: No Renal Failure: No Seizures: Yes Sickle Cell Disease: No Sleep Apnea: No Thyroid Disease: No Ulcer: No PNEUMOCCOCAL Vaccine (Year): 1 ?: Unknown LMP: 04/30/17 : 6 Para: 6 Miscarriage: 0 : 0 Tubal Ligation: Yes Past Surgical History Abdominal Surgery: No AICD: No Arteriovenous Shunt: No Cardiac Surgery: No Ear Surgery: No Endocrine Surgery: No Eye Surgery: No Genitourinary Surgery: No Gynecologic Surgery: Yes (tubal ligation) Insulin Pump: No Joint Replacement: No Neurologic Surgery: No Oral Surgery: No Pacemaker: No Thoracic Surgery: No Other Surgery: Yes Social History Alcohol Use: Yes Tobacco Use: No Substance Use: No Allergies-Medications (Allergen,Severity, Reaction): Coded Allergies: Canned Fish (Verified Allergy, Severe, ANAPHYLAXIS, 03/12/17) "all fish" per pt Penicillin (Verified Allergy, Severe, Rash, 03/12/17) Seafood (Verified Allergy, Severe, ANAPHYLAXIS, 03/12/17) Rocephin (Verified Allergy, Intermediate, VOMITING, 03/12/17) Reported Meds & Prescriptions Reported Meds & Active Scripts Active Ventolin Hfa 18 GM Inh (Albuterol Sulfate) 90 Mcg/Act Aer 2 Puff INH Q4H PRN Albuterol Neb (Albuterol Sulfate) 2.5 Mg/0.5 Ml Neb 2.5 Mg NEB Q6HR NEB PRN Note: The Albuterol Sulfate Inhalation Solution is concentrated and must be diluted. Read complete instructions carefully before using. Reported Ipratropium Neb (Ipratropium [place]) 0.5 Mg/2.5 Ml Amp 0.5 Mg NEB Q6HR NEB Dilantin (Phenytoin Extended) 100 Mg Cap 300 Mg PO HS Norvasc (Amlodipine Besylate) 5 Mg Tab 5 Mg PO HS Clonidine (Clonidine HCl) 0.2 Mg Tab 0.2 Mg PO HS Symbicort Inh (Budesonide/Formoterol Fumarate) 160-4.5 Mcg/Act Aero 2 Puff INH Q12HR Hydrochlorothiazide 25 Mg Tab 25 Mg PO BID Lisinopril 40 Mg Tab 40 Mg PO HS Review of Systems Except as stated in HPI: all other systems reviewed are Neg Physical Exam Narrative GENERAL: 36yo F in mild distress. SKIN: Focused skin assessment warm/dry. HEAD: Atraumatic. Normocephalic. EYES: Pupils equal and round at 3mm bilaterally. EOMI. No scleral icterus. No injection or drainage. ENT: No nasal bleeding or discharge. Mucous membranes pink and moist. NECK: Trachea midline. No JVD. CARDIOVASCULAR: Regular rate and rhythm. No murmur appreciated. RESPIRATORY: No accessory muscle use. End expiratory wheezing bilaterally. GASTROINTESTINAL: Abdomen soft, diffuse ttp periumbilical region. No rebound tenderness or guarding. MUSCULOSKELETAL: No obvious deformities. No clubbing. No cyanosis. No edema. NEUROLOGICAL: Awake and alert. No obvious cranial nerve deficits. Motor grossly within normal limits. Normal speech. PSYCHIATRIC: Appropriate mood and affect; insight and judgment normal. Data Data Last Documented VS Vital Signs Date Time Temp Pulse Resp B/P Pulse Ox O2 Delivery O2 Flow Rate FiO2 05/02/17 20:04 70 17 135/78 96 05/02/17 15:22 98.6 Orders Complete Blood Count With Diff (05/02/17 15:26) Comprehensive Metabolic Panel (05/02/17 15:26) Lipase (05/02/17 15:26) Urinalysis - C+S If Indicated (05/02/17 15:26) Ed Urine Pregnancytest Poc (05/02/17 15:59) Ketorolac Inj (Toradol Inj) (05/02/17 17:45) Ondansetron Inj (Zofran Inj) (05/02/17 17:45) Chest, Single Ap (05/02/17 17:36) Albuterol-Ipratropium Neb (Duoneb Neb) (05/02/17 17:45) Methylprednisolone So Succ Inj (Solumedr (05/02/17 17:45) Ct Abd/Pel W Iv Contrast(Rout) (05/02/17 ) Morphine Inj (Morphine Inj) (05/02/17 18:30) Metoclopramide Inj (Reglan Inj) (05/02/17 18:30) Electrocardiogram (05/02/17 15:38) Iohexol 350 Inj (Omnipaque 350 Inj) (05/02/17 19:37) Labs Laboratory Tests Test 05/02/17 15:50 White Blood Count 5.5 TH/MM3 Red Blood Count 4.36 MIL/MM3 Hemoglobin 10.8 GM/DL Hematocrit 33.7 % Mean Corpuscular Volume 77.4 FL Mean Corpuscular Hemoglobin 24.8 PG Mean Corpuscular Hemoglobin 32.1 % Concent Red Cell Distribution Width 17.0 % Platelet Count 293 TH/MM3 Mean Platelet Volume 9.3 FL Neutrophils (%) (Auto) 64.1 % Lymphocytes (%) (Auto) 29.3 % Monocytes (%) (Auto) 4.7 % Eosinophils (%) (Auto) 1.4 % Basophils (%) (Auto) 0.5 % Neutrophils # (Auto) 3.5 TH/MM3 Lymphocytes # (Auto) 1.6 TH/MM3 Monocytes # (Auto) 0.3 TH/MM3 Eosinophils # (Auto) 0.1 TH/MM3 Basophils # (Auto) 0.0 TH/MM3 CBC Comment DIFF FINAL Differential Comment Urine Color YELLOW Urine Turbidity CLEAR Urine pH 7.0 Urine Specific [place] 1.026 Urine Protein TRACE mg/dL Urine Glucose (UA) NEG mg/dL Urine Ketones NEG mg/dL Urine Occult Blood NEG Urine Nitrite NEG Urine Bilirubin NEG Urine Urobilinogen LESS THAN 2.0 MG/DL Urine Leukocyte Esterase NEG Urine WBC 1 /hpf Urine Squamous Epithelial 2 /hpf Cells Microscopic Urinalysis Comment CULT NOT INDICATED Sodium Level 135 MEQ/L Potassium Level 3.9 MEQ/L Chloride Level 105 MEQ/L Carbon Dioxide Level 24.7 MEQ/L Anion Gap 5 MEQ/L Blood Urea Nitrogen 12 MG/DL Creatinine 0.65 MG/DL Estimat Glomerular Filtration 124 ML/MIN Rate Random Glucose 86 MG/DL Calcium Level 8.9 MG/DL Total Bilirubin 0.3 MG/DL Aspartate Amino Transf 22 U/L (AST/SGOT) Alanine Aminotransferase 32 U/L (ALT/SGPT) Alkaline Phosphatase 114 U/L Total Protein 7.9 GM/DL Albumin 3.8 GM/DL Lipase 177 U/L [facility] Medical Decision Making Medical Screen Exam Complete: Yes Emergency Medical Condition: Yes Interpretation(s) EKG: NSR 75bpm. Normal axis. TWI III, V5, V6. Differential Diagnosis Gastritis vs. pancreatitis vs. viral syndrome vs. migraine headache vs. mild asthma exacerbation Narrative Course 36yo F with multiple complaints. Pt mainly has abdominal pain, vomiting and now headache that feels like her migraine headache. Pt also with seizure disorder and is suppose to be on dilantin but has not taken her dilantin for 2 weeks because she does not like how it makes her feel. Last seizure was about 1 month ago and has appointment for neurologist. Labs reviewed, no leukocytosis. H/H mildly decreased at 10.8/33.7. Pt states she just finished her menstrual period 3 days ago. CMP unremarkable. Lipase normal. UA negative. CXR showed no acute disease. Pt initially given zofran and toradol but still with abdominal pain. Headache has improved. Pt then given morphine, reglan and CTa/p ordered. CTa/p showed no acute findings identified within the abdomen and pelvis. 2.9cm right adnexal cyst. Nonobstructing left renal calculi. No bowel obstruction, free air or free fluid. Pt reevaluated at bedside and feels better. Abdomen is soft, nontender. Tolerating PO. Return precautions given. Diagnosis Primary Impression: Abdominal pain Qualified Code: R10.33 - Periumbilical abdominal pain Additional Impression: Asthma Qualified Code: J45.30 - Mild persistent asthma without complication Patient Instructions: General Instructions Departure Forms: Tests/Procedures Additional Instructions: Please follow up with your PMD in 3-7 days. Return to the ED if symptoms worsen. Med/Other Pt SpecificInfo: Prescription(s) given Scripts Acetaminophen (Tylenol)325 Mg [id number] Mg PO Q6H PRN (PAIN SCALE 1 TO 4) #20 TAB Ref 0 Prov:Ruchi Okeefe DO 05/02/17 Prednisone (Deltasone)20 Mg Tab20 Mg PO BID 5 Days Ref 0 Prov:Ruchi Okeefe DO 05/02/17 Albuterol 18 GM Inh (Ventolin Hfa 18 GM Inh)90 Mcg/Act Aer2 Puff INH Q4H PRN ( SHORTNESS OF BREATH) #1 INHALER Ref 0 Prov:Ruchi Okeefe DO 05/02/17 Disposition: 01 DISCHARGE HOME Condition: Stable Ruchi Okeefe DO May 02, 2017 17:44
--- NOTE | 2017-05-02 18:02 | RADRPT ---
EXAM DATE/TIME: 05/02/2017 17:52 [facility] COMPARISON: No previous studies available for comparison. INDICATIONS : Shortness of breath. MEDICAL HISTORY : Hypertension. Asthma. SURGICAL HISTORY : None. ENCOUNTER: Initial ACUITY: 3 days PAIN SCORE: 0/10 LOCATION: chest FINDINGS: A single view of the chest demonstrates the lungs to be symmetrically aerated without evidence of mas s, infiltrate or effusion. The cardiomediastinal contours are unremarkable. Osseous structures are intact. CONCLUSION: No acute disease. Dc Dill MD on May 02, 2017 at 18:00 Board Certified Radiologist. This report was verified electronically.
[2017-05-02] MEDS: RESP: ALBUTEROL 2.5 MG/IPRATROPIUM 0.5 MG NEB (SCH) INH ×2 (18:06→18:07)
[2017-05-02] MEDS ORDERED: MORPHINE SULFATE 4 MG/ML INJ IV PUSH ONE (18:30)
[2017-05-02] MEDS ORDERED: METOCLOPRAMIDE INJ 10 MG in SODIUM CHLORIDE 0.9% INJ 50 ML IV ONE (18:30)
[2017-05-02] MEDS ORDERED: IOHEXOL 350 MG/ML 10 ML VIAL (for RAD DIAG) IV ONE (19:37)
--- NOTE | 2017-05-02 20:02 | RADRPT ---
EXAM DATE/TIME: 05/02/2017 19:30 [facility] COMPARISON: No previous studies available for comparison. INDICATIONS : Patient complains of abdominal pain. IV CONTRAST: 100 cc Omnipaque 350 (iohexol) IV ORAL CONTRAST: No oral contrast ingested. RADIATION DOSE: 11.75 CTDIvol (mGy) MEDICAL HISTORY : Hypertension. SURGICAL HISTORY : Tubal ligation. ENCOUNTER: Initial ACUITY: 1 day PAIN SCALE: 9/10 LOCATION: Left abdomen TECHNIQUE: Volumetric scanning of the abdomen and pelvis was performed. Using automated exposure control and ad justment of the mA and/or kV according to patient size, radiation dose was kept as low as reasonably achievable to obtain optimal diagnostic quality images. DICOM format image data is available electro nically for review and comparison. FINDINGS: There is some probable mucoid plugging of a dilated bronchus in the right lower lobe similar in appea sharon to September 2015. Minimal basilar groundglass opacity improved from prior study. No acute findings in the liver, spleen, adrenals or pancreas. There is a nonobstructing 3 mm calculus upper pole left kidney a 2 mm calculus lower pole left kidney. Right kidney unremarkable. There is no free fluid or free air. No bowel obstruction. There is fluid attenuation in the endometri al cavity. 2.9 cm right adnexal cyst noted. No acute bony abnormalities. CONCLUSION: 1. No acute findings identified within the abdomen and pelvis. 2.9 cm right adnexal cyst. Non obstruc ting left renal calculi. No bowel obstruction, free air or free fluid. Dc Dill MD on May 02, 2017 at 19:55 Board Certified Radiologist. This report was verified electronically.
[2017-05-02 20:04] VITALS: BP 135/78; PULSE 70; RESP 17; O2SAT 96
[2017-05-02] MEDS ORDERED: TYLE325T PO (20:13)
[2017-05-02] MEDS ORDERED: PRED-503 PO (20:13)
[2017-05-02] MEDS ORDERED: VENTAER INH (20:13)
--- NOTE | 2017-05-03 17:21 | EKG ---
Date Performed: 05/02/2017 Time Performed: 15:38:27 PTAGE: 36 years EKG: Sinus rhythm MODERATE T-WAVE ABNORMALITY, CONSIDER LATERAL ISCHEMIA ABNORMAL ECG Compared to prior tracing no sig nificant change PREVIOUS TRACING : 12/08/2016 05.40 DOCTOR: Linus Bullock Interpretating Date/Time 05/03/2017 17:18:17
== END 2017-05-02 20:34 | disposition home or self-care (01) ==
LOC: NEPD 15:19
DX: R10.33 Periumbilical pain (principal); R11.10 Vomiting, unspecified; R51 Headache; G40.909 Epilepsy, unspecified, not intractable, without status epilepticus; R94.31 Abnormal electrocardiogram [ECG] [EKG]; N83.201 Unspecified ovarian cyst, right side; N20.0 Calculus of kidney; I10 Essential (primary) hypertension; J45.909 Unspecified asthma, uncomplicated
CPT/HCPCS: 71010; 74177; 80053; 81001; 83690; 84703; 85025; 93005; 94640; 94664; 96374; 96375; 99285; J1885; J2270; J2405; J2765; J2930; Q9967

== ENCOUNTER 2017-06-07 22:37 | Emergency (ER) | payer OTHER ==
[~2017-06-07] VITALS: Ht 175.3 cm; Wt 105.0 kg
[~2017-06-07 22:37] MED LIST changes: -ADVA100A INH; -LEVA500T20 PO; +PRED-503 PO; -PRED20 PO; +TYLE325T PO
[2017-06-07 22:39] VITALS: BP 173/97; PULSE 100; RESP 16; TEMP 99.3; O2SAT 98
[2017-06-07] MEDS ORDERED: RESP: ALBUTEROL 2.5 MG/IPRATROPIUM 0.5 MG NEB (SCH) NEB ONE (23:30)
[2017-06-07] MEDS ORDERED: predniSONE 20 MG TAB PO ONE (23:30)
--- NOTE | 2017-06-07 23:45 | PD ---
HPI Chief Complaint: Chest Pain Time Seen by Provider: 22:58 Travel History International Travel<30 days: No Contact w/Intl Traveler<30days: No Traveled to known affect area: No History of Present Illness HPI 36-year-old woman with a history of hypertension asthma migraines and seizures presents emergent arm with chest pain increased cough and increased trouble breathing for the past couple days. She had some dizziness as well. She one episode of vomiting yesterday. She endorses that she has frequent trouble with chest pain for which she seen a physician multiple times. No other complaints. History Past Medical History Narrative Medical Hypertension Asthma Migraines Seizures PNEUMOCCOCAL Vaccine (Year): 1 LMP: 05/23/17 : 6 Para: 6 Social History Alcohol Use: Yes Tobacco Use: No Allergies-Medications (Allergen,Severity, Reaction): Coded Allergies: Fish Containing Products (Unverified Allergy, Severe, ANAPHYLAXIS, 06/07/17 ) "all fish" per pt penicillin G (Unverified Allergy, Severe, Rash, 06/07/17) ceftriaxone (Unverified Allergy, Intermediate, VOMITING, 06/07/17) Reported Meds & Prescriptions Reported Meds & Active Scripts Active Deltasone (Prednisone) 20 Mg Tab 20 Mg PO BID 5 Days Ventolin Hfa 18 GM Inh (Albuterol Sulfate) 90 Mcg/Act Aer 2 Puff INH Q4H PRN Ventolin Hfa 18 GM Inh (Albuterol Sulfate) 90 Mcg/Act Aer 2 Puff INH Q4H PRN Albuterol Neb (Albuterol Sulfate) 2.5 Mg/0.5 Ml Neb 2.5 Mg NEB Q6HR NEB PRN Note: The Albuterol Sulfate Inhalation Solution is concentrated and must be diluted. Read complete instructions carefully before using. Reported Ipratropium Neb (Ipratropium [place]) 0.5 Mg/2.5 Ml Amp 0.5 Mg NEB Q6HR NEB Dilantin (Phenytoin Extended) 100 Mg Cap 300 Mg PO HS Norvasc (Amlodipine Besylate) 5 Mg Tab 5 Mg PO HS Clonidine (Clonidine HCl) 0.2 Mg Tab 0.2 Mg PO HS Symbicort Inh (Budesonide/Formoterol Fumarate) 160-4.5 Mcg/Act Aero 2 Puff INH Q12HR Hydrochlorothiazide 25 Mg Tab 25 Mg PO BID Lisinopril 40 Mg Tab 40 Mg PO HS Review of Systems Except as stated in HPI: all other systems reviewed are Neg Physical Exam Narrative GENERAL: Well appearing 36 year-old woman, no acute distress. SKIN: Focused skin assessment warm/dry. NECK: Trachea midline. No JVD. CARDIOVASCULAR: Regular rate and rhythm. No murmur appreciated. RESPIRATORY: Frequent cough. Moderate diffuse wheezing. GASTROINTESTINAL: Abdomen soft, non-tender, nondistended. Hepatic and splenic margins not palpable. MUSCULOSKELETAL: No obvious deformities. No clubbing. No cyanosis. No edema. NEUROLOGICAL: Awake and alert. No obvious cranial nerve deficits. Motor grossly within normal limits. Normal speech. PSYCHIATRIC: Appropriate mood and affect; insight and judgment normal. Data Data Last Documented VS Vital Signs Date Time Temp Pulse Resp B/P (MAP) Pulse Ox O2 Delivery O2 Flow Rate FiO2 06/07/17 22:39 99.3 100 16 173/97 (122) 98 Room Air Orders Orders Albuterol-Ipratropium Neb (Duoneb Neb) (06/07/17 23:30) Prednisone (Deltasone) (06/07/17 23:30) MDM Medical Decision Making Medical Screen Exam Complete: Yes Emergency Medical Condition: Yes Interpretation(s) My review of EKG: Normal sinus rhythm at a rate of 96, normal axis, normal intervals, no definite evidence of acute ischemia. Differential Diagnosis Cough, pneumonia, bronchitis, URI, other Narrative Course Medical decision making Is a 36-year-old woman who presents emergency Department with chest pain cough and some shortness of breath. Her lung exams unremarkable with just some expiratory wheezing. No rhonchi or other evidence of pneumonia. Patient had many chest x-rays in the past. She does not appear acutely ill. I do not think she has pneumonia now. Recommend treatment for asthma exacerbation and cough suppressant as needed. Diagnosis Primary Impression: Acute asthma exacerbation Additional Instructions: Continue albuterol every 4-6 hours until symptoms resolve. Take Deltasone as prescribed. Return to the emergency department for any new or worsening symptoms. Med/Other Pt SpecificInfo: Prescription(s) given Scripts Prednisone (Deltasone) 20 Mg Tab 20 MG PO BID for 5 Days, TAB 0 Refills Prov: Francsi Frank MD 06/07/17 Albuterol 18 GM Inh (Ventolin Hfa 18 GM Inh) 90 Mcg/Act Aer 2 PUFF INH Q4H Y for SHORTNESS OF BREATH, #1 INHALER 0 Refills Prov: Francis Frank MD 06/07/17 Disposition: 01 DISCHARGE HOME Condition: Stable Francis Frank MD Jun 07, 2017 23:45
[2017-06-07] MEDS ORDERED: VENTAER INH (23:49)
[2017-06-07] MEDS ORDERED: PRED-503 PO (23:49)
--- NOTE | 2017-06-08 12:48 | EKG ---
Date Performed: 06/07/2017 Time Performed: 23:05:49 PTAGE: 36 years EKG: Sinus rhythm POSSIBLE LEFT ATRIAL ENLARGEMENT NONSPECIFIC T-WAVE ABNORMALITY BORDERLINE ECG PREVIOUS TRACING : 05/02/2017 15.38 Compared to previous tracing, lateral T wave inversion is n o longer present. DOCTOR: Jadiel Dickerson Interpretating Date/Time 06/08/2017 12:47:29
== END 2017-06-08 00:01 | disposition home or self-care (01) ==
LOC: NEPE 22:37
DX: J45.901 Unspecified asthma with (acute) exacerbation (principal); R42 Dizziness and giddiness; R11.10 Vomiting, unspecified; R07.9 Chest pain, unspecified; R94.31 Abnormal electrocardiogram [ECG] [EKG]; R56.9 Unspecified convulsions; I10 Essential (primary) hypertension; Z79.51 Long term (current) use of inhaled steroids; Z79.899 Other long term (current) drug therapy
CPT/HCPCS: 93005; 94664; 99284; J7512

== ENCOUNTER 2017-10-14 16:02 | Emergency (ER) | payer MEDICAID, OTHER ==
[~2017-10-14] VITALS: Ht 157.5 cm; Wt 105.5 kg
[~2017-10-14 16:02] MED LIST changes: -TYLE325T PO
[2017-10-14 16:05] VITALS: BP 147/108; PULSE 85; RESP 16; TEMP 98.6; O2SAT 98
--- NOTE | 2017-10-14 16:59 | RADRPT ---
EXAM DATE/TIME: 10/14/2017 16:29 [facility] COMPARISON: CHEST PA & LAT, March 12, 2017, 21:30. INDICATIONS : Chest pain. MEDICAL HISTORY : Hypertension. Asthma. SURGICAL HISTORY : None. ENCOUNTER: Initial ACUITY: 1 day PAIN SCORE: 10/10 LOCATION: Bilateral chest FINDINGS: PA and lateral views of the chest demonstrate the lungs to be symmetrically aerated without evidence of mass, infiltrate or effusion. The cardiomediastinal contours are unremarkable. Osseous structure s are intact. CONCLUSION: 1. No acute cardiopulmonary disease. Wei Harrison MD on October 14, 2017 at 16:56 Board Certified Radiologist. This report was verified electronically.
[2017-10-14 17:13] LABS: AMORPHOUS SEDIMENT, URINE RARE; BILIRUBIN, URINE NEG (NEG); BLOOD, URINE NEG (NEG); GLUCOSE,URINE NEG (NEG); KETONE, URINE NEG (NEG); MUCUS URINE FEW /lpf (OCC); NITRITE,URINE NEG (NEG); SQUAMOUS EPITHELIAL CELL URINE 11 /hpf (0-5); URINE COLOR YELLOW (YELLW/STRAW); URINE LEUKOCYTE ESTERASE NEG (NEG)
[2017-10-14 18:38] LABS: AUTOMATED NEUTROPHIL # 3.3 TH/MM3 (1.8-7.7); BASOPHIL # 0.1 TH/MM3 (0-0.2); BASOPHIL % 0.9 % (0.0-2.0); EOSINOPHIL # 0.4 TH/MM3 (0-0.4); EOSINOPHIL % 6.2 % (0.0-4.0); HEMATOCRIT 37.1 % (35.0-46.0); HEMOGLOBIN 12.2 GM/DL (11.6-15.3); LYMPH % 32.4 % (9.0-44.0); LYMPHOCYTE # 1.9 TH/MM3 (1.0-4.8); MEAN CELL VOLUME 78.6 FL (80.0-100.0); MEAN CORPUSCULAR HEMOGLOBIN 25.8 PG (27.0-34.0); MEAN CORPUSCULAR HGB CONC 32.8 % (32.0-36.0); MEAN PLATELET VOLUME 9.8 FL (7.0-11.0); MONO % 5.1 % (0.0-8.0); MONOCYTE # 0.3 TH/MM3 (0-0.9); NEUT % 55.4 % (16.0-70.0); PLATELET COUNT 265 TH/MM3 (150-450); RED BLOOD COUNT 4.72 MIL/MM3 (4.00-5.30); RED CELL DISTRIBUTION WIDTH 16.9 % (11.6-17.2); WHITE BLOOD COUNT 5.9 TH/MM3 (4.0-11.0)
[2017-10-14 18:51] LABS: BICARBONATE 25.7 MEQ/L (21.0-32.0); BLOOD UREA NITROGEN 12 MG/DL (7-18); CALCIUM 9.4 MG/DL (8.5-10.1); CHLORIDE 104 MEQ/L (98-107); CREATININE 0.67 MG/DL (0.50-1.00); GLOMERULAR FILTRATION RATE 119 ML/MIN (>89); GLUCOSE,RANDOM 90 MG/DL (74-106); SODIUM (NA) 138 MEQ/L (136-145)
[2017-10-14 18:56] LABS: TROPONIN I LESS THAN 0.02 NG/ML (0.02-0.05)
[2017-10-14] MEDS ORDERED: PRED-503 PO (20:13)
--- NOTE | 2017-10-14 20:14 | PD ---
HPI Chief Complaint: Chest Pain Time Seen by Provider: 19:47 Travel History International Travel<30 days: No Contact w/Intl Traveler<30days: No Traveled to known affect area: No History of Present Illness HPI 37-year-old female with a history of asthma, HTN, and migraines presents to emergency department complaining of shortness of breath, chest pain, headache this started approximately 3 days ago. Patient states that her symptoms feel as if she has an upper respiratory infection. Patient states that the chest pain is located in the middle of her chest does not radiate. States that she feels a summary sitting on her chest. Patient states she has been using albuterol treatments but has not felt better. Patient denies fevers or chills. States that she has had increased shortness of breath. Nothing makes her pain or shortness of breath better or worse. In addition, patient states that she has a migraine described as sharp in the frontal region that started about the same day as her shortness of breath. Patient states he does have a history of migraines and this feels similar. Patient has tried butalbital and ibuprofen without significant relief. States this does feel like her normal migraines. This is not the worse headache of her life. Patient denies weakness. States he has felt mildly nauseous and lightheaded at the onset of her symptoms. PFSH Past Medical History Arthritis: No Asthma: Yes Autoimmune Disease: No Blood Disorders: No Anxiety: No Depression: No Heart Rhythm Problems: No Cancer: No Cardiovascular Problems: Yes (htn) High Cholesterol: No Chemotherapy: No Chest Pain: Yes Congestive Heart Failure: No COPD: No Cerebrovascular Accident: No Diabetes: No Diminished Hearing: No Endocrine: No Gastrointestinal Disorders: No GERD: No Genitourinary: No Headaches: Yes Hiatal Hernia: No Heparin Induced Thrombocytopen: No Hypertension: Yes Immune Disorder: No Implanted Vascular Access Dvce: No Kidney Stones: No Musculoskeletal: No Neurologic: No Psychiatric: No Reproductive: No Respiratory: Yes (ASTHMA) Immunizations Current: Yes Migraines: Yes Radiation Therapy: No Renal Failure: No Seizures: Yes Sickle Cell Disease: No Sleep Apnea: No Thyroid Disease: No Ulcer: No PNEUMOCCOCAL Vaccine (Year): 1 ?: Not LMP: end august : 6 Para: 6 Miscarriage: 0 : 0 Tubal Ligation: Yes Past Surgical History Abdominal Surgery: No AICD: No Arteriovenous Shunt: No Cardiac Surgery: No Ear Surgery: No Endocrine Surgery: No Eye Surgery: No Genitourinary Surgery: No Gynecologic Surgery: Yes (tubal ligation) Insulin Pump: No Joint Replacement: No Neurologic Surgery: No Oral Surgery: No Pacemaker: No Thoracic Surgery: No Other Surgery: Yes Social History Alcohol Use: Yes Tobacco Use: No Substance Use: No Allergies-Medications (Allergen,Severity, Reaction): Coded Allergies: Fish Containing Products (Unverified Allergy, Severe, ANAPHYLAXIS, 06/07/17 ) "all fish" per pt penicillin G (Unverified Allergy, Severe, Rash, 06/07/17) ceftriaxone (Unverified Allergy, Intermediate, VOMITING, 06/07/17) Reported Meds & Prescriptions Reported Meds & Active Scripts Active Deltasone (Prednisone) 20 Mg Tab 20 Mg PO BID 5 Days Ventolin Hfa 18 GM Inh (Albuterol Sulfate) 90 Mcg/Act Aer 2 Puff INH Q4H PRN Ventolin Hfa 18 GM Inh (Albuterol Sulfate) 90 Mcg/Act Aer 2 Puff INH Q4H PRN Albuterol Neb (Albuterol Sulfate) 2.5 Mg/0.5 Ml Neb 2.5 Mg NEB Q6HR NEB PRN Note: The Albuterol Sulfate Inhalation Solution is concentrated and must be diluted. Read complete instructions carefully before using. Reported Ipratropium Neb (Ipratropium [place]) 0.5 Mg/2.5 Ml Amp 0.5 Mg NEB Q6HR NEB Dilantin (Phenytoin Extended) 100 Mg Cap 300 Mg PO HS Norvasc (Amlodipine Besylate) 5 Mg Tab 5 Mg PO HS Clonidine (Clonidine HCl) 0.2 Mg Tab 0.2 Mg PO HS Symbicort Inh (Budesonide/Formoterol Fumarate) 160-4.5 Mcg/Act Aero 2 Puff INH Q12HR Hydrochlorothiazide 25 Mg Tab 25 Mg PO BID Lisinopril 40 Mg Tab 40 Mg PO HS Review of Systems Except as stated in HPI: all other systems reviewed are Neg Physical Exam Narrative GENERAL: Well-developed well-nourished in no apparent distress SKIN: Focused skin assessment warm/dry. HEAD: Atraumatic. Normocephalic. EYES: Pupils equal and round, although difficult to assess as she has colic contacts in.. No scleral icterus. No injection or drainage. ENT: No nasal bleeding or discharge. Mucous membranes pink and moist. NECK: Trachea midline. No JVD. CARDIOVASCULAR: Regular rate and rhythm. No murmur appreciated. RESPIRATORY: No accessory muscle use. Clear to auscultation. Breath sounds equal bilaterally. GASTROINTESTINAL: Abdomen soft, non-tender, nondistended. Hepatic and splenic margins not palpable. MUSCULOSKELETAL: No obvious deformities. No clubbing. No cyanosis. No edema. NEUROLOGICAL: Awake and alert. No obvious cranial nerve deficits. Motor grossly within normal limits. Normal speech. PSYCHIATRIC: Appropriate mood and affect; insight and judgment normal. Data Data Last Documented VS Vital Signs Date Time Temp Pulse Resp B/P (MAP) Pulse Ox O2 Delivery O2 Flow Rate FiO2 10/14/17 22:09 20 (120) 100 10/14/17 21:53 80 Room Air 10/14/17 20:27 21 10/14/17 16:05 98.6 Orders Orders Electrocardiogram (10/14/17 16:22) Basic Metabolic Panel (Bmp) (10/14/17 16:22) Ckmb (Isoenzyme) Profile (10/14/17 16:22) Complete Blood Count With Diff (10/14/17 16:22) Magnesium (Mg) (10/14/17 16:22) Prothrombin Time / Inr (Pt) (10/14/17 16:22) Act Partial Throm Time (Ptt) (10/14/17 16:22) Troponin I (10/14/17 16:22) Chest, Pa & Lat (10/14/17 16:22) Urinalysis - C+S If Indicated (10/14/17 16:22) Ed Urine Pregnancytest Poc (10/14/17 16:22) CKMB (10/14/17 18:15) CKMB% (10/14/17 18:15) Influenzae A/B Antigen (10/14/17 20:01) Methylprednisolone So Succ Inj (Solumedr (10/14/17 20:15) Albuterol Neb (Albuterol Neb) (10/14/17 20:15) Sodium Chlor 0.9% 1000 Ml Inj (Ns 1000 M (10/14/17 20:15) Hydralazine Inj (Apresoline Inj) (10/14/17 21:30) Ed Discharge Order (10/14/17 21:55) Labs Laboratory Tests Test 10/14/17 16:46 10/14/17 18:15 Urine Color YELLOW Urine Turbidity HAZY Urine pH 7.0 Urine Specific [place] 1.021 Urine Protein NEG mg/dL Urine Glucose (UA) NEG mg/dL Urine Ketones NEG mg/dL Urine Occult Blood NEG Urine Nitrite NEG Urine Bilirubin NEG Urine Urobilinogen LESS THAN 2.0 MG/DL Urine Leukocyte Esterase NEG Urine RBC 1 /hpf Urine WBC 1 /hpf Urine Squamous Epithelial Cells 11 /hpf Urine Amorphous Sediment RARE Urine Mucus FEW /lpf Microscopic Urinalysis Comment CULT NOT INDICATED White Blood Count 5.9 TH/MM3 Red Blood Count 4.72 MIL/MM3 Hemoglobin 12.2 GM/DL Hematocrit 37.1 % Mean Corpuscular Volume 78.6 FL Mean Corpuscular Hemoglobin 25.8 PG Mean Corpuscular Hemoglobin Concent 32.8 % Red Cell Distribution Width 16.9 % Platelet Count 265 TH/MM3 Mean Platelet Volume 9.8 FL Neutrophils (%) (Auto) 55.4 % Lymphocytes (%) (Auto) 32.4 % Monocytes (%) (Auto) 5.1 % Eosinophils (%) (Auto) 6.2 % Basophils (%) (Auto) 0.9 % Neutrophils # (Auto) 3.3 TH/MM3 Lymphocytes # (Auto) 1.9 TH/MM3 Monocytes # (Auto) 0.3 TH/MM3 Eosinophils # (Auto) 0.4 TH/MM3 Basophils # (Auto) 0.1 TH/MM3 CBC Comment DIFF FINAL Differential Comment Prothrombin Time 10.0 SEC Prothromb Time International Ratio 1.0 RATIO Activated Partial Thromboplast Time 28.0 SEC Blood Urea Nitrogen 12 MG/DL Creatinine 0.67 MG/DL Random Glucose 90 MG/DL Calcium Level 9.4 MG/DL Magnesium Level 2.0 MG/DL Sodium Level 138 MEQ/L Potassium Level 3.9 MEQ/L Chloride Level 104 MEQ/L Carbon Dioxide Level 25.7 MEQ/L Anion Gap 8 MEQ/L Estimat Glomerular Filtration Rate 119 ML/MIN Total Creatine Kinase 142 U/L Creatine Kinase MB 1.4 NG/ML Troponin I LESS THAN 0.02 NG/ML MDM Medical Decision Making Medical Screen Exam Complete: Yes Emergency Medical Condition: Yes Differential Diagnosis Migraine, pneumonia, asthma exacerbation Narrative Course 37-year-old female with a history of asthma, HTN, and migraines presents to emergency department complaining of shortness of breath, chest pain, headache this started approximately 3 days ago. Patient states that her symptoms feel as if she has an upper respiratory infection. Patient states that the chest pain is located in the middle of her chest does not radiate. States that she feels like someone is sitting on her chest. Patient states she has been using albuterol treatments but has not felt better. Patient denies fevers or chills. States that she has had increased shortness of breath. Nothing makes her pain or shortness of breath better or worse. In addition, patient states that she has a migraine described as sharp in the frontal region that started about the same day as her shortness of breath. Patient states he does have a history of migraines and this feels similar. Patient has previously tried butalbital and ibuprofen without significant relief. States this does feel like her normal migraines. This is not the worse headache of her life. Patient denies weakness. States he has felt mildly nauseous and lightheaded at the onset of her symptoms. Vital signs stable although mildly hypertensive. Reduced with 10mg hydralazine to 174/92. Physical exam findings consistent with a 37-year-old female with a well- nourished in no acute distress. Laboratory Tests Test 10/14/17 16:46 10/14/17 18:15 Urine Color YELLOW Urine Turbidity HAZY Urine pH 7.0 Urine Specific [place] 1.021 Urine Protein NEG mg/dL Urine Glucose (UA) NEG mg/dL Urine Ketones NEG mg/dL Urine Occult Blood NEG Urine Nitrite NEG Urine Bilirubin NEG Urine Urobilinogen LESS THAN 2.0 MG/DL Urine Leukocyte Esterase NEG Urine RBC 1 /hpf Urine WBC 1 /hpf Urine Squamous Epithelial Cells 11 /hpf Urine Amorphous Sediment RARE Urine Mucus FEW /lpf Microscopic Urinalysis Comment CULT NOT INDICATED White Blood Count 5.9 TH/MM3 Red Blood Count 4.72 MIL/MM3 Hemoglobin 12.2 GM/DL Hematocrit 37.1 % Mean Corpuscular Volume 78.6 FL Mean Corpuscular Hemoglobin 25.8 PG Mean Corpuscular Hemoglobin Concent 32.8 % Red Cell Distribution Width 16.9 % Platelet Count 265 TH/MM3 Mean Platelet Volume 9.8 FL Neutrophils (%) (Auto) 55.4 % Lymphocytes (%) (Auto) 32.4 % Monocytes (%) (Auto) 5.1 % Eosinophils (%) (Auto) 6.2 % Basophils (%) (Auto) 0.9 % Neutrophils # (Auto) 3.3 TH/MM3 Lymphocytes # (Auto) 1.9 TH/MM3 Monocytes # (Auto) 0.3 TH/MM3 Eosinophils # (Auto) 0.4 TH/MM3 Basophils # (Auto) 0.1 TH/MM3 CBC Comment DIFF FINAL Differential Comment Prothrombin Time 10.0 SEC Prothromb Time International Ratio 1.0 RATIO Activated Partial Thromboplast Time 28.0 SEC Blood Urea Nitrogen 12 MG/DL Creatinine 0.67 MG/DL Random Glucose 90 MG/DL Calcium Level 9.4 MG/DL Magnesium Level 2.0 MG/DL Sodium Level 138 MEQ/L Potassium Level 3.9 MEQ/L Chloride Level 104 MEQ/L Carbon Dioxide Level 25.7 MEQ/L Anion Gap 8 MEQ/L Estimat Glomerular Filtration Rate 119 ML/MIN Total Creatine Kinase 142 U/L Creatine Kinase MB 1.4 NG/ML Troponin I LESS THAN 0.02 NG/ML Last Impressions Chest X-Ray 10/14/17 1622 Signed Impressions: Service Date/Time: Saturday, October 14, 2017 16:29 - CONCLUSION: 1. No acute cardiopulmonary disease. Wei Harrison MD 1 L normal saline, 125 mg methylprednisolone, DuoNeb administered. Flu negative. Patient admits that her current symptoms are similar to previous episodes of asthma exacerbation. States she does feel better after today's interventions. Patient will be discharged with prednisone. Advised follow-up with her primary care physician for evaluation of her high blood pressure and asthma. Return for worsening or persistent symptoms. Diagnosis Primary Impression: Acute asthma exacerbation Qualified Codes: J45.901 - Unspecified asthma with (acute) exacerbation Referrals: [facility] Primary Care Physician Additional Instructions: Take all medications as prescribed Follow-up with primary care physician within 2-3 days. If her symptoms persist or worsen return to the emergency room. Ensure you have adequate fluid intake and nutrition. Scripts Prednisone (Deltasone) 20 Mg Tab 20 MG PO BID for 5 Days, TAB 0 Refills Prov: Kerrie Merino 10/14/17 Disposition: 01 DISCHARGE HOME Condition: Stable Kerrie Merino Oct 14, 2017 20:14
[2017-10-14] MEDS ORDERED: methylPREDNISolone SOD SUCC 125 MG/2 ML VIAL IV PUSH ONE (20:15)
[2017-10-14] MEDS ORDERED: SODIUM CHLOR 0.9% 1000 ML INJ 1,000 ML IV ONE (20:15)
[2017-10-14] MEDS: RESP: ALBUTEROL 2.5 MG/3 ML NEB (SCH) INH (20:21)
[2017-10-14 20:27] VITALS: O2SAT 98
[2017-10-14 21:13] VITALS: BP 187/106; PULSE 80; RESP 20; O2SAT 99
[2017-10-14] MEDS ORDERED: hydrALAZINE HCL 20 MG/ML VIAL IV PUSH ONE (21:30)
[2017-10-14 21:53] VITALS: BP 172/94; PULSE 80; O2SAT 100
--- NOTE | 2017-10-14 22:06 | EKG ---
Date Performed: 10/14/2017 Time Performed: 18:16:44 PTAGE: 37 years EKG: Sinus rhythm ST DEVIATION AND MODERATE T-WAVE ABNORMALITY ABNORMAL ECG PREVIOUS TRACING : 06/07/2017 23.05 Since previous tracing prominent T wave changes present DOCTOR: Severino Tidwell Interpretating Date/Time 10/14/2017 22:05:15
== END 2017-10-14 22:23 | disposition home or self-care (01) ==
LOC: NEPC 16:02
DX: J45.901 Unspecified asthma with (acute) exacerbation (principal); I10 Essential (primary) hypertension; R94.31 Abnormal electrocardiogram [ECG] [EKG]
CPT/HCPCS: 71046; 80048; 81001; 82550; 82552; 83735; 84484; 84703; 85025; 85610; 85730; 87804; 93005; 94640; 94664; 96361; 96374; 96375; 99285; J0360; J2930; J7030; J7613

== ENCOUNTER 2017-10-27 15:39 | Emergency (ER) | payer MEDICAID ==
[2017-10-27 15:43] VITALS: BP 158/93; PULSE 91; RESP 18; TEMP 98.8; O2SAT 100
--- NOTE | 2017-10-27 16:48 | RADRPT ---
EXAM DATE/TIME: 10/27/2017 16:15 [facility] COMPARISON: No previous studies available for comparison. INDICATIONS : Right foot pain and swelling with no known injury. MEDICAL HISTORY : None. SURGICAL HISTORY : None. ENCOUNTER: Initial ACUITY: 3 days PAIN SCORE: 10/10 LOCATION: Right foot. FINDINGS: Three view examination of the right foot demonstrates no soft tissue swelling, dislocation, or fractu re. The tarsal bones appear intact. There is mild hallux valgus. The interphalangeal and metatarso phalangeal joints are intact. The calcaneus is intact. Bony mineralization is normal. CONCLUSION: No acute bony findings Sp Chang MD on October 27, 2017 at 16:44 Board Certified Radiologist. This report was verified electronically.
[2017-10-27] MEDS ORDERED: TYLE325T PO (18:57)
[2017-10-27] MEDS ORDERED: CLIN150C14 PO (18:57)
[2017-10-27] MEDS ORDERED: ACETAMINOPHEN/HYDROcodone 325 MG/5 MG TAB PO ONE (19:00)
--- NOTE | 2017-10-27 19:04 | PD ---
HPI Chief Complaint: Injury Time Seen by Provider: 18:23 Travel History International Travel<30 days: No Contact w/Intl Traveler<30days: No Traveled to known affect area: No History of Present Illness HPI 37-year-old female presents to the ED for evaluation 3 day history of 9/10 foot pain. Quality is constant, throbbing, radiates up the back of the leg.. Patient can identify no acute injury. She states that the pain is worsened by walking. She states that the pain has worsened over the last 3 days and she cannot bear weight on it today. She denies worsening pain with first steps the day. She can identify no puncture or overuse injury. She states that she only works 2 days a week and wear supportive shoes during this time. PFSH Past Medical History Arthritis: No Asthma: Yes Autoimmune Disease: No Blood Disorders: No Anxiety: No Depression: No Heart Rhythm Problems: No Cancer: No Cardiovascular Problems: Yes (HTN) High Cholesterol: No Chemotherapy: No Chest Pain: Yes Congestive Heart Failure: No COPD: No Cerebrovascular Accident: No Diabetes: No Diminished Hearing: No Endocrine: No Gastrointestinal Disorders: No GERD: No Genitourinary: No Headaches: Yes Hiatal Hernia: No Heparin Induced Thrombocytopen: No Hypertension: Yes Immune Disorder: No Implanted Vascular Access Dvce: No Kidney Stones: No Musculoskeletal: No Neurologic: No Psychiatric: No Reproductive: No Respiratory: Yes (ASTHMA) Immunizations Current: Yes Migraines: Yes Radiation Therapy: No Renal Failure: No Seizures: Yes Sickle Cell Disease: No Sleep Apnea: No Thyroid Disease: No Ulcer: No PNEUMOCCOCAL Vaccine (Year): 1 ?: Not : 6 Para: 6 Miscarriage: 0 : 0 Tubal Ligation: Yes Past Surgical History Abdominal Surgery: No AICD: No Arteriovenous Shunt: No Cardiac Surgery: No Ear Surgery: No Endocrine Surgery: No Eye Surgery: No Genitourinary Surgery: No Gynecologic Surgery: Yes (tubal ligation) Insulin Pump: No Joint Replacement: No Neurologic Surgery: No Oral Surgery: No Pacemaker: No Thoracic Surgery: No Other Surgery: Yes Social History Alcohol Use: Yes Tobacco Use: No Substance Use: No Allergies-Medications (Allergen,Severity, Reaction): Coded Allergies: Fish Containing Products (Unverified Allergy, Severe, ANAPHYLAXIS, 10/27/17) "all fish" per pt penicillin G (Unverified Allergy, Severe, Rash, 10/27/17) ceftriaxone (Unverified Allergy, Intermediate, VOMITING, 10/27/17) Reported Meds & Prescriptions Reported Meds & Active Scripts Active Tylenol (Acetaminophen) 325 Mg Tab 650 Mg PO Q6H PRN Clindamycin (Clindamycin HCl) 150 Mg Cap 450 Mg PO Q8HR 5 Days Deltasone (Prednisone) 20 Mg Tab 20 Mg PO BID 5 Days Ventolin Hfa 18 GM Inh (Albuterol Sulfate) 90 Mcg/Act Aer 2 Puff INH Q4H PRN Ventolin Hfa 18 GM Inh (Albuterol Sulfate) 90 Mcg/Act Aer 2 Puff INH Q4H PRN Albuterol Neb (Albuterol Sulfate) 2.5 Mg/0.5 Ml Neb 2.5 Mg NEB Q6HR NEB PRN Note: The Albuterol Sulfate Inhalation Solution is concentrated and must be diluted. Read complete instructions carefully before using. Reported Ipratropium Neb (Ipratropium [place]) 0.5 Mg/2.5 Ml Amp 0.5 Mg NEB Q6HR NEB Dilantin (Phenytoin Extended) 100 Mg Cap 300 Mg PO HS Norvasc (Amlodipine Besylate) 5 Mg Tab 5 Mg PO HS Clonidine (Clonidine HCl) 0.2 Mg Tab 0.2 Mg PO HS Symbicort Inh (Budesonide/Formoterol Fumarate) 160-4.5 Mcg/Act Aero 2 Puff INH Q12HR Hydrochlorothiazide 25 Mg Tab 25 Mg PO BID Lisinopril 40 Mg Tab 40 Mg PO HS Review of Systems Except as stated in HPI: all other systems reviewed are Neg Physical Exam Narrative GENERAL: Well-nourished, well-developed obese white female in no acute distress. SKIN: Focused skin assessment warm/dry. HEAD: Normocephalic. EYES: No scleral icterus. No injection or drainage. NECK: Supple, trachea midline. No JVD or lymphadenopathy. CARDIOVASCULAR: Regular rate and rhythm without murmurs, gallops, or rubs. RESPIRATORY: Breath sounds equal bilaterally. No accessory muscle use. GASTROINTESTINAL: Abdomen soft, non-tender, nondistended. MUSCULOSKELETAL: No cyanosis, or edema. FOCUSED RIGHT LOWER EXTREMITY EXAM: 2+ DP pulse. Mild erythema of the forefoot. No visible puncture wound or other wound. Tender to palpation of the entire forefoot. No tenderness to palpation over the plantar surface of the heel. No focal great toe MP joint tenderness. Mild edema of the ankle. No tenderness to palpation of the bilateral malleolus. Homans sign negative bilaterally. She was able to flex and extend the ankle without pain. SHe is able to wiggle the toes but states this is painful. Neurovascularly intact distally. BACK: Nontender without obvious deformity. No CVA tenderness. Data Data Last Documented VS Vital Signs Date Time Temp Pulse Resp B/P (MAP) Pulse Ox O2 Delivery O2 Flow Rate FiO2 10/27/17 19:07 10/27/17 15:43 98.8 91 18 100 Orders Orders Foot, Complete (Vhr2nxz) (10/27/17 ) Crutches (10/27/17 18:33) Ramón Bandage (10/27/17 18:33) Acetamin-Hydrocod 325-5 Mg ([place] 5-325 (10/27/17 19:00) Ed Discharge Order (10/27/17 19:04) MDM Medical Decision Making Medical Screen Exam Complete: Yes Emergency Medical Condition: Yes Differential Diagnosis Lisfranc injury versus plantar fasciitis versus gout versus sprain versus fracture versus cellulitis versus other Narrative Course 37-year-old female presents to the ED for evaluation 3 day history of 9/10 foot pain. She states that the pain is worsened by walking. She states that the pain has worsened over the last 3 days and she cannot bear weight on it today. She denies worsening pain with first steps the day. She can identify no puncture or overuse injury. She states that she only works 2 days a week and wear supportive shoes during this time. Vitals reviewed. Physical exam reveals an obese female in no acute distress. The foot is mildly edematous. No erythema or puncture wound noted. She has tenderness to palpation over the plantar and dorsal aspect of the forefoot. She is able to wiggle her toes but states this is painful. No flail or tenderness. No limitations to range of motion of the ankle. Homans sign negative. No tenderness to palpation of the plantar fascia with flexion of the forefoot. X- ray reveals no acute bony injury per radiology read. Patient was provided with an Ramón wrap and crutches. Patient does have dark skin and this may be obscuring any erythema although there is no warmth. We'll trial clindamycin for possible early cellulitis. Patient was provided a prescription for clindamycin and course of Tylenol. She is instructed to return to normal, gentle activities as tolerated, return to the ED for worsening symptoms, otherwise follow up with the business systems advisor. She is stable and discharged home. Diagnosis Primary Impression: Right foot pain Referrals: [employer] Se[employer] Manager Patient Instructions: Foot Sprain (ED), General Instructions Additional Instructions: Rest, ice, elevate the extremity. Apply ice no longer than 10-15 minutes per hour a few times a day. Extra strength Tylenol as prescribed. Take antibiotics until every pill is gone. Return to gentle weightbearing as tolerated. Return to normal, gentle activity as tolerated. No running, jumping activities for the next few weeks. Follow up with the business systems advisor or primary care provider. Return to the ED for worsening symptoms or any urgent or emergent medical condition. Med/Other Pt SpecificInfo: Prescription(s) given Scripts Acetaminophen (Tylenol) 325 Mg Tab 650 MG PO Q6H Y for PAIN SCALE 1 TO 10, #15 TAB 0 Refills Prov: Alberto Cuevas MD 10/27/17 Clindamycin (Clindamycin) 150 Mg Cap 450 MG PO Q8HR for Infection for 5 Days, CAP 0 Refills Prov: Alberto Cuevas MD 10/27/17 Disposition: 01 DISCHARGE HOME Condition: Stable Clare Jung Oct 27, 2017 19:04
== END 2017-10-27 19:12 | disposition home or self-care (01) ==
LOC: NEPK 15:39
DX: M79.671 Pain in right foot (principal)
CPT/HCPCS: 73630; 99283; E0113

== ENCOUNTER 2018-01-16 01:04 | Emergency (ER) | payer MEDICAID ==
[~2018-01-16] VITALS: Ht 154.9 cm; Wt 100.0 kg
[~2018-01-16 01:04] MED LIST changes: +CLIN150C14 PO; +TYLE325T PO
[2018-01-16 01:11] VITALS: BP 199/103; PULSE 82; RESP 18; TEMP 98.4; O2SAT 100
--- NOTE | 2018-01-16 03:39 | PD ---
HPI . nose bleed Chief Complaint: Nosebleed Time Seen by Provider: 01:21 Travel History International Travel<30 days: No Contact w/Intl Traveler<30days: No Traveled to known affect area: No History of Present Illness HPI Patient has had 5 days off and on of nosebleed coming from the right nare she has high blood pressure she is on 5 different medications to control her blood pressure however she is not on anticoagulation she is on no blood thinners she has no hemophilia no coagulopathy no blood dyscrasias and in the ER she is sleeping and there is no bleeding happening I observe her and then after a while explained to her how to hold the nose pressing the septum to put pressure on examine her nose I see no obvious active bleeding posterior pharynx there is no trickle of red blood it is stopped and she is discharged PFS Past Medical History Arthritis: No Asthma: Yes Autoimmune Disease: No Blood Disorders: No Anxiety: No Depression: No Heart Rhythm Problems: No Cancer: No Cardiovascular Problems: Yes (HTN) High Cholesterol: No Chemotherapy: No Chest Pain: Yes Congestive Heart Failure: No COPD: Yes Cerebrovascular Accident: No Diabetes: No Diminished Hearing: No Endocrine: No Gastrointestinal Disorders: No GERD: No Genitourinary: No Headaches: Yes Hiatal Hernia: No Heparin Induced Thrombocytopen: No Hypertension: Yes Immune Disorder: No Implanted Vascular Access Dvce: No Kidney Stones: No Musculoskeletal: No Neurologic: No Psychiatric: No Reproductive: No Respiratory: Yes (COPD, Asthma) Immunizations Current: Yes Migraines: Yes Radiation Therapy: No Renal Failure: No Seizures: Yes Sickle Cell Disease: No Sleep Apnea: No Thyroid Disease: No Ulcer: No Tetanus Vaccination: < 5 Years Influenza Vaccination: No PNEUMOCCOCAL Vaccine (Year): 1 ?: Not LMP: 12/19/17 : 6 Para: 6 Miscarriage: 0 : 0 Tubal Ligation: Yes Past Surgical History Abdominal Surgery: No AICD: No Arteriovenous Shunt: No Cardiac Surgery: No Ear Surgery: No Endocrine Surgery: No Eye Surgery: No Genitourinary Surgery: No Gynecologic Surgery: Yes (tubal ligation) Insulin Pump: No Joint Replacement: No Neurologic Surgery: No Oral Surgery: No Pacemaker: No Thoracic Surgery: No Other Surgery: Yes Social History Alcohol Use: Yes Tobacco Use: No Substance Use: No Allergies-Medications (Allergen,Severity, Reaction): Coded Allergies: Fish Containing Products (Unverified Allergy, Severe, ANAPHYLAXIS, 10/27/17) "all fish" per pt penicillin G (Unverified Allergy, Severe, Rash, 10/27/17) ceftriaxone (Unverified Allergy, Intermediate, VOMITING, 10/27/17) Reported Meds & Prescriptions Reported Meds & Active Scripts Active Tylenol (Acetaminophen) 325 Mg Tab 650 Mg PO Q6H PRN Clindamycin (Clindamycin HCl) 150 Mg Cap 450 Mg PO Q8HR 5 Days Deltasone (Prednisone) 20 Mg Tab 20 Mg PO BID 5 Days Ventolin Hfa 18 GM Inh (Albuterol Sulfate) 90 Mcg/Act Aer 2 Puff INH Q4H PRN Ventolin Hfa 18 GM Inh (Albuterol Sulfate) 90 Mcg/Act Aer 2 Puff INH Q4H PRN Albuterol Neb (Albuterol Sulfate) 2.5 Mg/0.5 Ml Neb 2.5 Mg NEB Q6HR NEB PRN Note: The Albuterol Sulfate Inhalation Solution is concentrated and must be diluted. Read complete instructions carefully before using. Reported Ipratropium Neb (Ipratropium [place]) 0.5 Mg/2.5 Ml Amp 0.5 Mg NEB Q6HR NEB Dilantin (Phenytoin Extended) 100 Mg Cap 300 Mg PO HS Norvasc (Amlodipine Besylate) 5 Mg Tab 5 Mg PO HS Clonidine (Clonidine HCl) 0.2 Mg Tab 0.2 Mg PO HS Symbicort Inh (Budesonide/Formoterol Fumarate) 160-4.5 Mcg/Act Aero 2 Puff INH Q12HR Hydrochlorothiazide 25 Mg Tab 25 Mg PO BID Lisinopril 40 Mg Tab 40 Mg PO HS Review of Systems Except as stated in HPI: all other systems reviewed are Neg Physical Exam Narrative GENERAL: Nontoxic she is not tachycardic she does not appear to be anemic does not appear to have excessive blood loss sleeping comfortably in the exam room when I come in SKIN: Warm and dry. HEAD: Atraumatic. Normocephalic. EYES: Pupils equal and round. No scleral icterus. No injection or drainage. ENT: No nasal bleeding or discharge. Mucous membranes pink and moist. There is some dried blood in the right nare there is no active bleeding posterior pharynx there is no trickle of blood the epistaxis has stopped on its own NECK: Trachea midline. No JVD. CARDIOVASCULAR: Regular rate and rhythm. RESPIRATORY: No accessory muscle use. Clear to auscultation. Breath sounds equal bilaterally. GASTROINTESTINAL: Abdomen soft, non-tender, nondistended. Hepatic and splenic margins not palpable. MUSCULOSKELETAL: Extremities without clubbing, cyanosis, or edema. No obvious deformities. NEUROLOGICAL: Awake and alert. No obvious cranial nerve deficits. Motor grossly within normal limits. Five out of 5 muscle strength in the arms and legs. Normal speech. PSYCHIATRIC: Appropriate mood and affect; insight and judgment normal. Data Data Last Documented VS Vital Signs Date Time Temp Pulse Resp B/P (MAP) Pulse Ox O2 Delivery O2 Flow Rate FiO2 01/16/18 01:11 98.4 82 18 199/103 (135) 100 Orders Orders Ed Discharge Order (01/16/18 03:39) MDM Medical Decision Making Medical Screen Exam Complete: Yes Emergency Medical Condition: Yes Differential Diagnosis Epistaxis due to vasculopathy epistaxis due to hypertension uncontrolled epistaxis due to trauma epistaxis due to coagulopathy Narrative Course I examined the patient after she has been ER for 2 and half hours with no rebleed posterior pharynx has no blood there right has minimal blood no need for cauterization patient is discharged to follow-up as an outpatient she is instructed how to hold her nose from the outside in pressing on the septum in the mid pole of the nose if bleeding returns Diagnosis Primary Impression: Epistaxis Patient Instructions: Epistaxis (DC), General Instructions, Nosebleed (ED) Disposition: 01 DISCHARGE HOME Condition: Good Ray Aguilar MD Jan 16, 2018 03:39
== END 2018-01-16 03:58 | disposition home or self-care (01) ==
LOC: NEPE 01:04
DX: R04.0 Epistaxis (principal); I10 Essential (primary) hypertension
CPT/HCPCS: 99282

== ENCOUNTER 2018-02-18 16:10 | Emergency (ER) | payer MEDICAID ==
[~2018-02-18 16:10] MED LIST changes: -CLIN150C14 PO; -PRED-503 PO
[2018-02-18 16:28] VITALS: BP 189/115; PULSE 68; RESP 15; TEMP 98.8; O2SAT 100
--- NOTE | 2018-02-18 16:54 | PD ---
HPI Chief Complaint: Fall Time Seen by Provider: 16:43 Travel History International Travel<30 days: No Contact w/Intl Traveler<30days: No Traveled to known affect area: No History of Present Illness HPI 37-year-old female presents to the emergency department for evaluation of head injury after a slip and fall the bathroom. She states that she hit her head and face. She states that she thinks she had positive LOC. She reports vomiting 3 since the fall. She complains of nasal pain, several headache, midline neck pain. Patient is currently rates the pain 10/10. She took ibuprofen and BC powder at home without improvement. She states this occurred approximately 2 hours prior to arrival. She reports that she does not take anticoagulants and has no bleeding disorders. She denies any chance of reporting history of tubal ligation. No other symptoms or complaints. Moderate severity. PFSH Past Medical History Arthritis: No Asthma: Yes Autoimmune Disease: No Blood Disorders: No Anxiety: No Depression: No Heart Rhythm Problems: No Cancer: No Cardiovascular Problems: Yes (HTN) High Cholesterol: No Chemotherapy: No Chest Pain: Yes Congestive Heart Failure: No COPD: Yes Cerebrovascular Accident: No Diabetes: No Diminished Hearing: No Endocrine: No Gastrointestinal Disorders: No GERD: No Genitourinary: No Headaches: Yes Hiatal Hernia: No Heparin Induced Thrombocytopen: No Hypertension: Yes Immune Disorder: No Implanted Vascular Access Dvce: No Kidney Stones: No Musculoskeletal: No Neurologic: No Psychiatric: No Reproductive: No Respiratory: Yes (ASTHMA) Immunizations Current: Yes Migraines: Yes Radiation Therapy: No Renal Failure: No Seizures: Yes Sickle Cell Disease: No Sleep Apnea: No Thyroid Disease: No Ulcer: No PNEUMOCCOCAL Vaccine (Year): 1 : 6 Para: 6 Miscarriage: 0 : 0 Tubal Ligation: Yes Past Surgical History Abdominal Surgery: No AICD: No Arteriovenous Shunt: No Cardiac Surgery: No Ear Surgery: No Endocrine Surgery: No Eye Surgery: No Genitourinary Surgery: No Gynecologic Surgery: Yes (tubal ligation) Insulin Pump: No Joint Replacement: No Neurologic Surgery: No Oral Surgery: No Pacemaker: No Thoracic Surgery: No Other Surgery: Yes Social History Alcohol Use: Yes Tobacco Use: No Substance Use: No Allergies-Medications (Allergen,Severity, Reaction): Coded Allergies: Fish Containing Products (Unverified Allergy, Severe, ANAPHYLAXIS, 10/27/17) "all fish" per pt penicillin G (Unverified Allergy, Severe, Rash, 10/27/17) ceftriaxone (Unverified Allergy, Intermediate, VOMITING, 10/27/17) Reported Meds & Prescriptions Reported Meds & Active Scripts Active Tylenol (Acetaminophen) 325 Mg Tab 650 Mg PO Q6H PRN Clindamycin (Clindamycin HCl) 150 Mg Cap 450 Mg PO Q8HR 5 Days Deltasone (Prednisone) 20 Mg Tab 20 Mg PO BID 5 Days Ventolin Hfa 18 GM Inh (Albuterol Sulfate) 90 Mcg/Act Aer 2 Puff INH Q4H PRN Ventolin Hfa 18 GM Inh (Albuterol Sulfate) 90 Mcg/Act Aer 2 Puff INH Q4H PRN Albuterol Neb (Albuterol Sulfate) 2.5 Mg/0.5 Ml Neb 2.5 Mg NEB Q6HR NEB PRN Note: The Albuterol Sulfate Inhalation Solution is concentrated and must be diluted. Read complete instructions carefully before using. Reported Ipratropium Neb (Ipratropium [place]) 0.5 Mg/2.5 Ml Amp 0.5 Mg NEB Q6HR NEB Dilantin (Phenytoin Extended) 100 Mg Cap 300 Mg PO HS Norvasc (Amlodipine Besylate) 5 Mg Tab 5 Mg PO HS Clonidine (Clonidine HCl) 0.2 Mg Tab 0.2 Mg PO HS Symbicort Inh (Budesonide/Formoterol Fumarate) 160-4.5 Mcg/Act Aero 2 Puff INH Q12HR Hydrochlorothiazide 25 Mg Tab 25 Mg PO BID Lisinopril 40 Mg Tab 40 Mg PO HS Review of Systems Except as stated in HPI: all other systems reviewed are Neg Physical Exam Narrative GENERAL: Well-nourished, well-developed female patient, ambulatory. Afebrile. SKIN: Focused skin assessment warm/dry. No lacerations or abrasions. HEAD: Normocephalic. Atraumatic. ENT: Mucosa pink and moist. No erythema or exudates. No uvular edema. No uvular , palatal, or tonsillar deviation. Airway patent. Nasal turbinates appear normal without nasal blood, purulent drainage or septal hematoma. Bilateral tympanic membranes clear without erythema or perforation. EYES: No scleral icterus. No injection or drainage. NECK: Supple, trachea midline. No JVD or lymphadenopathy. CARDIOVASCULAR: Regular rate and rhythm without murmurs, gallops, or rubs. RESPIRATORY: Breath sounds equal bilaterally. No accessory muscle use. Lung sounds are clear to auscultation peer GASTROINTESTINAL: Abdomen soft, non-tender, nondistended. MUSCULOSKELETAL: No cyanosis, or edema. BACK: No obvious deformity. No CVA tenderness. Patient has tenderness over midline cervical spine. Data Data Last Documented VS Vital Signs Date Time Temp Pulse Resp B/P (MAP) Pulse Ox O2 Delivery O2 Flow Rate FiO2 02/18/18 16:28 98.8 68 15 189/115 (139) [address] Brain W/O Iv Contrast(Rout) (02/18/18 ) Ct Facial Bones W/O Iv Cont (02/18/18 ) Ct Cerv Spine W/O Contrast (02/18/18 ) Methocarbamol (Robaxin) (02/18/18 17:00) Ondansetron Odt (Zofran Odt) (02/18/18 17:00) MDM Medical Decision Making Medical Screen Exam Complete: Yes Emergency Medical Condition: Yes Medical Record Reviewed: Yes Interpretation(s) Last Impressions Maxillofacial CT 02/18/18 0000 Signed Impressions: CONCLUSION: 1. Negative trauma study. Head CT 02/18/18 0000 Signed Impressions: CONCLUSION: 1. Negative CT Head non contrast. Cervical Spine CT 02/18/18 0000 Signed Impressions: CONCLUSION: 1. Degenerated disc at C4/5 and C5/6 as above. No acute fracture of the cervic al spine is identified. Differential Diagnosis closed head injury vs. intracranial hemorrhage vs. contusion vs. fracture Narrative Course 37-year-old female presents to the emergency department for evaluation after a slip and fall. CT the brain, cervical spine, facial bones are ordered and pending. Patient is given Zofran 4 mg ODT, Robaxin [address] of the brain is negative. CT of the cervical spine shows no acute fracture. CT of the facial bones is negative. Imaging is reassuring. Patient will be discharged prescription for ibuprofen and Robaxin. She is to follow with her primary care physician return here for any acute worsening of symptoms. The patient was discharged in stable condition with instructions, including return instructions and follow up instructions. Diagnosis Primary Impression: Closed head injury Qualified Codes: S09.90XA - Unspecified injury of head, initial encounter Additional Impressions: Cervical strain Qualified Codes: S16.1XXA - Strain of muscle, fascia and tendon at neck level , initial encounter Facial contusion Qualified Codes: S00.83XA - Contusion of other part of head, initial encounter Referrals: Primary Care Physician call for appointment Patient Instructions: Cervical Strain (ED), Contusion in Adults (ED), General Instructions, Head Injury (ED) Departure Forms: Tests/Procedures, Work Release Enter return to work date: Feb 20, 2018 Additional Instructions: Take ibuprofen as directed as needed with food for pain. Take Robaxin as directed as needed. Ice for 20 minutes 4-5 times daily. Follow-up with a primary care physician. Return to the emergency department for any acute worsening of symptoms. Med/Other Pt SpecificInfo: Prescription(s) given Scripts Methocarbamol (Robaxin) 750 Mg Tab 750 MG PO TID for Muscle Spasm, #21 TAB 0 Refills Prov: Amy Barkley 02/18/18 Ibuprofen (Ibuprofen) 800 Mg Tab 800 MG PO TID Y for PAIN SCALE 1 TO 10, #21 TAB 0 Refills Prov: Amy Barkley 02/18/18 Disposition: 01 DISCHARGE HOME Condition: Stable Amy Barkley February 18, 2018 16:54
[2018-02-18] MEDS ORDERED: ONDANSETRON ODT 4 MG TAB PO ONE (17:00)
[2018-02-18] MEDS ORDERED: METHOCARBAMOL 500 MG TAB PO ONE (17:00)
--- NOTE | 2018-02-18 17:22 | RADRPT ---
EXAM DATE: 02/18/2018 5:14 PM EDT AGE/SEX: 37 years / Female INDICATIONS: Trauma, fall CLINICAL DATA: This is the patient's initial encounter. Patient reports that signs and symptoms have been present for 1 day and indicates a pain score of 9/10. MEDICAL/SURGICAL HISTORY: Chronic obstructive pulmonary disease. Hypertension. Asthma. Seizures Tubal ligation. RADIATION DOSE: 35.90 CTDI (mGy) COMPARISON: No prior [facility] exams available for comparison. TECHNIQUE: CT of the head without contrast. Using automated exposure control and adjustment of the mA and/or kV according to patient size, radiation dose was kept as low as reasonably achievable to ob tain optimal diagnostic quality images. FINDINGS: Cerebrum: The ventricles are normal for age. No evidence of midline shift, mass lesion, hemorrhage or acute infarction. No extraaxial fluid collections are seen. Posterior Fossa: The cerebellum and brainstem are intact. The 4th ventricle is midline. The cerebe llopontine angle is unremarkable. Extracranial: The visualized portion of the orbits is intact. Skull: The calvaria is intact. No evidence of skull fracture. CONCLUSION: 1. Negative CT Head non contrast. Electronically signed by: Tom Velasquez MD 02/18/2018 5:21 PM EDT
--- NOTE | 2018-02-18 17:27 | RADRPT ---
EXAM DATE: 02/18/2018 5:21 PM EDT AGE/SEX: 37 years / Female INDICATIONS: Trauma, fall CLINICAL DATA: This is the patient's initial encounter. Patient reports that signs and symptoms have been present for 1 day and indicates a pain score of 9/10. MEDICAL/SURGICAL HISTORY: Chronic obstructive pulmonary disease. Hypertension. Asthma. Seizu res Tubal ligation. RADIATION DOSE: 24.08 CTDI (mGy) COMPARISON: No prior [place] exams available for comparison. TECHNIQUE: Contiguous axial images were obtained using helical multirow detector technique. The vol umetric data was post-processed with multiplanar reconstruction in oblique axial, sagittal, and coron al planes. Using automated exposure control and adjustment of the mA and/or kV according to patient s ize, radiation dose was kept as low as reasonably achievable to obtain optimal diagnostic quality shayan ges. FINDINGS: Sagittal and coronal reformats of the cervical spine are provided. The overall alignment is adequate. There are degenerated disc at C4/5 and C5/6. No acute fracture is seen. Axial imaging: C1-2: No significant abnormality identified. C2-3: The thecal space is adequate. The neural foramina are adequate. No significant abnormality is i dentified. C3-4 the thecal space is adequate. The neural foramina are adequate. No significant abnormality is id entified. C4-5: There is a degenerated disc with osteophytic ridging and broad-based disc bulge. There is uncov ertebral osteophyte and disc bulge encroaching upon the lateral recess and base of the foramina on th e right. The foramina on the left is adequate. C5-6: There is a degenerated disc. There is broad-based disc bulge and osteophytic ridging. The theca l space and foramina appear adequate. C6-7: The thecal space is adequate. The neural foramina are adequate. No significant abnormality is i dentified. C7/T1: No significant abnormality is identified. CONCLUSION: 1. Degenerated disc at C4/5 and C5/6 as above. No acute fracture of the cervical spine is identified . Electronically signed by: Tom Velasquez MD 02/18/2018 5:26 PM EDT
--- NOTE | 2018-02-18 17:53 | RADRPT ---
EXAM DATE: 02/18/2018 5:23 PM EDT AGE/SEX: 37 years / Female INDICATIONS: Trauma, fall CLINICAL DATA: This is the patient's initial encounter. Patient reports that signs and symptoms have been present for 1 day and indicates a pain score of 9/10. MEDICAL/SURGICAL HISTORY: Chronic obstructive pulmonary disease. Asthma. Hypertension. Seizu res Tubal ligation. RADIATION DOSE: 63.92 CTDI (mGy) COMPARISON: No prior [facility] exams available for comparison. TECHNIQUE: Contiguous images in the axial and coronal planes were obtained using helical multirow de tector technique. Using automated exposure control and adjustment of the mA and/or kV according to p atient size, radiation dose was kept as low as reasonably achievable to obtain optimal diagnostic [place] l[place] images. FINDINGS: Orbits: The orbital and infraorbital osseous structures are intact. The retroconal structures have a normal configuration. No radiopaque foreign bodies are seen. Nasal Bone: The nasal bone and maxillary spine are intact. Zygomatic Arches: Symmetric without evidence of fracture. Sinuses: The maxillary, ethmoid, and frontal sinuses are intact. No air-fluid levels seen. Nasal Cavity: The nasal septum is intact and midline. The lacrimal ducts are intact. Soft Tissues: No radiopaque foreign bodies seen. No soft-tissue swelling is seen. Intracranial: No intracranial air seen. Cribriform Plate: Grossly intact. CONCLUSION: 1. Negative trauma study. Electronically signed by: Rio Hardy MD 02/18/2018 5:52 PM EDT
[2018-02-18] MEDS ORDERED: ROBA750T PO (18:20)
[2018-02-18] MEDS ORDERED: IBUP1TAB7 PO (18:20)
== END 2018-02-18 18:58 | disposition home or self-care (01) ==
LOC: NEPD 16:10
DX: S16.1XXA Strain of muscle, fascia and tendon at neck level, initial encounter (principal); S00.83XA Contusion of other part of head, initial encounter; W01.0XXA Fall on same level from slipping, tripping and stumbling without subsequent striking against object, initial encounter
CPT/HCPCS: 70450; 70486; 72125; 99283